=== PATIENT | female | born 1930 | race Caucasian/White ===

== ENCOUNTER 2020-11-02 16:48 | Emergency (ER) | payer MEDICARE, BC ==
[2020-11-02 17:02] VITALS: BP 105/75; PULSE 87; RESP 16; TEMP 98.5
--- NOTE | 2020-11-02 18:00 | XR ---
RESULT: HISTORY: fall TECHNIQUE: 2 views of the right tibia and fibula were obtained. COMPARISON: None. FINDINGS: There is generalized osteopenia. There is no acute fracture or dislocation. Atherosclerotic calcifica tions are seen. Small dorsal calcaneal enthesophyte present. IMPRESSION: No acute osseous abnormality.
--- NOTE | 2020-11-02 18:02 | XR ---
EXAMINATION TYPE: XR elbow limited bilateral DATE OF EXAM: 11/02/2020 CLINICAL HISTORY: Pain status post fall. TECHNIQUE: Frontal, lateral and oblique images of the right elbow are obtained. COMPARISON: None FINDINGS: There is no acute fracture/dislocation evident in the left elbow. There is soft tissue lyn ma about the elbow. No radiopaque foreign body is seen. There are mild degenerative changes. No signi ficant joint effusion. IMPRESSION: Soft tissue edema without acute osseous abnormality.
--- NOTE | 2020-11-02 18:15 | XR ---
Result: History: Pain status post fall. Comparison: None available. Technique: 3 views of the thoracic spine. Findings: The bone mineralization is osteopenic, limiting evaluation. There is chronic appearing, multilevel mild compression deformities. There is no definite acute fract ure or subluxation. There is dextroconvex curvature of the thoracic spine. There is mild to moderate thoracic spondylosis. Impression: Chronic changes without definite acute osseous abnormality.
[2020-11-02 18:19] LABS: Basophils % (A) 0 %; Eosinophils % (A) 0 %; HCT 34.1 % (34.0-46.0); HGB 11.5 gm/dL (11.4-16.0); Lymphocytes # (A) 0.4 k/uL (1.0-4.8); Lymphocytes % (A) 3 %; MCH 32.5 pg (25.0-35.0); MCHC 33.7 g/dL (31.0-37.0); MCV 96.3 fL (80.0-100.0); Mean Platelet Volume 7.5; Monocytes # (A) 0.3 k/uL (0-1.0); Monocytes % (A) 3 %; Neutrophils # (A) 11.5 k/uL (1.3-7.7); Neutrophils % (A) 93 %; Platelet Count 291 k/uL (150-450); RBC 3.54 m/uL (3.80-5.40); RDW 13.9 % (11.5-15.5); WBC 12.3 k/uL (3.8-10.6)
--- NOTE | 2020-11-02 18:21 | ED ---
Fall HPI - General Chief Complaint: Fall Stated Complaint: Fall at home Time Seen by Provider: 11/02/20 16:55 Source: patient, family, EMS, RN notes reviewed Mode of arrival: EMS - History of Present Illness Initial Comments: Patient is an 89-year-old female who presents to emergency department status post fall last night. Her niece showed prostate found her on he kitchen floor in no close. She notes that her aunt told her story about tripped over a laundry basket not being able to get herself back ablation the bed. Patient was complaining of bilateral elbow pain right zurita pain. Niece also noticed several abrasions to the upper mid back. Patient denied any pain other than the elbows while sitting up in bed during exam and interview. Patient did have pretty severe kyphosis. She was a well-appearing 89-year-old female in no apparent distress and she denied any chest pain shortness of breath headache nausea vomiting diarrhea constipation fever fatigue chills. - Related Data Home Medications Medication Instructions Recorded Confirmed Aspirin 81 mg PO DAILY 10/05/13 11/02/20 Metoprolol Succinate (ER) [Toprol 50 mg PO DAILY 10/05/13 11/02/20 XL] Simvastatin [Zocor] 20 mg PO DAILY 10/05/13 11/02/20 Santo/D3/Mag11/Zinc/Boiler Control Room Operator/Jarocho/Bor 1 tab PO DAILY 11/02/20 11/02/20 [Caltrate 600+D Plus Tablet] Sennosides [Senna] 8.6 mg PO BID 11/02/20 11/02/20 amLODIPine [Norvasc] 5 mg PO DAILY 11/02/20 11/02/20 lisinopriL 20 mg PO DAILY 11/02/20 11/02/20 Previous Rx's Medication Instructions Recorded Nitrofurantoin Monohyd/M-Cryst 100 mg PO Q12HR #14 cap 11/02/20 [Macrobid] Allergies Allergy/AdvReac Type Severity Reaction Status Date / Time ampicillin Allergy Unknown Verified 11/02/20 18:54 azithromycin Allergy Unknown Verified 11/02/20 18:54 dexamethasone Allergy Unknown Verified 11/02/20 18:54 erythromycin base Allergy Unknown Verified 11/02/20 18:54 [Erythromycin Base] levofloxacin [From Levaquin] Allergy Unknown Verified 11/02/20 18:54 polyethylene glycol Allergy Unknown Verified 11/02/20 18:54 [From Golytely] polyethylene glycol 3350 Allergy Unknown Verified 11/02/20 18:54 [From Golytely] potassium chloride Allergy Unknown Verified 11/02/20 18:54 [From Golytely] sodium [From Golytely] Allergy Unknown Verified 11/02/20 18:54 sodium bicarbonate Allergy Unknown Verified 11/02/20 18:54 [From Golytely] sodium chloride Allergy Unknown Verified 11/02/20 18:54 [From Golytely] sodium sulfate Allergy Unknown Verified 11/02/20 18:54 [From Golytely] sodium sulfate anhydrous Allergy Unknown Verified 11/02/20 18:54 [From Golytely] Review of Systems ROS Statement: Those systems with pertinent positive or pertinent negative responses have been documented in the HPI. ROS Other: All systems not noted in ROS Statement are negative. Past Medical History Past Medical History: GERD/Reflux, Hyperlipidemia, Hypertension Additional Past Medical History / Comment(s): chronic constipation, irritable bowel syndrome, esophageal spasms, osteoporosis History of Any Multi-Drug Resistant Organisms: None Reported Past Surgical History: Cholecystectomy, Hysterectomy, Orthopedic Surgery Additional Past Surgical History / Comment(s): cysts removed from bilateral breasts, right knee surgery, Past Psychological History: Anxiety, Depression Smoking Status: Never smoker Past Alcohol Use History: None Reported Past Drug Use History: None Reported General Exam Limitations: no limitations General appearance: alert, in no apparent distress, other (Severe kyphosis) Head exam: Present: atraumatic, normocephalic, normal inspection Eye exam: Present: normal appearance. Absent: scleral icterus, conjunctival injection, periorbital swelling Neck exam: Present: normal inspection Respiratory exam: Present: normal lung sounds bilaterally. Absent: respiratory distress, wheezes, rales, rhonchi, stridor Cardiovascular Exam: Present: regular rate, normal rhythm, normal heart sounds. Absent: systolic murmur, diastolic murmur, rubs, gallop, clicks Extremities exam: Present: normal inspection, full ROM, normal capillary refill, other (Small erythematous patch to the right zurita consistent with pressure injury,). Absent: tenderness, pedal edema, joint swelling, calf tenderness Back exam: Absent: normal inspection (2 small abrasions to the upper mid back, no signs or symptoms of infection), full ROM (Due to severe kyphosis) Neurological exam: Present: alert, oriented X3 Psychiatric exam: Present: normal affect, normal mood Skin exam: Present: warm, dry, intact, normal color. Absent: rash Course Vital Signs 11/02/20 17:00 Temperature 98.5 F Pulse Rate 87 Respiratory 16 Rate Blood Pressure 105/75 O2 Sat by Pulse 92 L Oximetry Medical Decision Making - Medical Decision Making 89-year-old female status post fall last night complaining of bilateral elbow pain, right zurita pain with several abrasions to mid back. Labs, x-ray of the bilateral elbow, right tib-fib, thoracic spine ordered. Labs unremarkable. Urinalysis shows moderate white blood cells, antibiotics sent to pharmacy. All x-ray imaging negative for any acute osseous abnormality. Case discussed with Dr. Arce, patient can discharge home with follow-up to primary care. - Lab Data Result diagrams: 11/02/20 17:37 11/02/20 17:37 Lab Results 11/02/20 11/02/20 11/02/20 Range/Units 17:37 17:37 17:37 WBC 12.3 H (3.8-10.6) k/uL RBC 3.54 L (3.80-5.40) m/uL Hgb 11.5 (11.4-16.0) gm/dL Hct 34.1 (34.0-46.0) % MCV 96.3 (80.0-100.0) fL MCH 32.5 (25.0-35.0) pg MCHC 33.7 (31.0-37.0) g/dL RDW 13.9 (11.5-15.5) % Plt Count 291 (150-450) k/uL MPV 7.5 Neutrophils % 93 % Lymphocytes % 3 % Monocytes % 3 % Eosinophils % 0 % Basophils % 0 % Neutrophils # 11.5 H (1.3-7.7) k/uL Lymphocytes # 0.4 L (1.0-4.8) k/uL Monocytes # 0.3 (0-1.0) k/uL Eosinophils # 0.0 (0-0.7) k/uL Basophils # 0.0 (0-0.2) k/uL PT 11.5 (9.0-12.0) sec INR 1.1 (<1.2) APTT 19.0 L (22.0-30.0) sec Sodium 140 (137-145) mmol/L Potassium 4.1 (3.5-5.1) mmol/L Chloride 106 (98-107) mmol/L Carbon Dioxide 20 L (22-30) mmol/L Anion Gap 14 mmol/L BUN 64 H (7-17) mg/dL Creatinine 1.46 H (0.52-1.04) mg/dL Est GFR (CKD-EPI)AfAm 37 (>60 ml/min/1.73 sqM) Est GFR (CKD-EPI)NonAf 32 (>60 ml/min/1.73 sqM) Glucose 124 H (74-99) mg/dL Calcium 9.6 (8.4-10.2) mg/dL Total Bilirubin 2.0 H (0.2-1.3) mg/dL AST 124 H (14-36) U/L ALT 43 H (4-34) U/L Alkaline Phosphatase 73 (38-126) U/L Total Protein 5.9 L (6.3-8.2) g/dL Albumin 3.2 L (3.5-5.0) g/dL Urine Color Urine Appearance (Clear) Urine pH (5.0-8.0) Ur Specific [place] (1.001-1.035) Urine Protein (Negative) Urine Glucose (UA) (Negative) Urine Ketones (Negative) Urine Blood (Negative) Urine Nitrite (Negative) Urine Bilirubin (Negative) Urine Urobilinogen (<2.0) mg/dL Ur Leukocyte Esterase (Negative) Urine RBC (0-5) /hpf Urine WBC (0-5) /hpf 11/02/20 Range/Units 19:13 WBC (3.8-10.6) k/uL RBC (3.80-5.40) m/uL Hgb (11.4-16.0) gm/dL Hct (34.0-46.0) % MCV (80.0-100.0) fL MCH (25.0-35.0) pg MCHC (31.0-37.0) g/dL RDW (11.5-15.5) % Plt Count (150-450) k/uL MPV Neutrophils % % Lymphocytes % % Monocytes % % Eosinophils % % Basophils % % Neutrophils # (1.3-7.7) k/uL Lymphocytes # (1.0-4.8) k/uL Monocytes # (0-1.0) k/uL Eosinophils # (0-0.7) k/uL Basophils # (0-0.2) k/uL PT (9.0-12.0) sec INR (<1.2) APTT (22.0-30.0) sec Sodium (137-145) mmol/L Potassium (3.5-5.1) mmol/L Chloride (98-107) mmol/L Carbon Dioxide (22-30) mmol/L Anion Gap mmol/L BUN (7-17) mg/dL Creatinine (0.52-1.04) mg/dL Est GFR (CKD-EPI)AfAm (>60 ml/min/1.73 sqM) Est GFR (CKD-EPI)NonAf (>60 ml/min/1.73 sqM) Glucose (74-99) mg/dL Calcium (8.4-10.2) mg/dL Total Bilirubin (0.2-1.3) mg/dL AST (14-36) U/L ALT (4-34) U/L Alkaline Phosphatase (38-126) U/L Total Protein (6.3-8.2) g/dL Albumin (3.5-5.0) g/dL Urine Color Yellow Urine Appearance Clear (Clear) Urine pH 5.5 (5.0-8.0) Ur Specific [place] 1.017 (1.001-1.035) Urine Protein 1+ H (Negative) Urine Glucose (UA) Trace H (Negative) Urine Ketones 1+ H (Negative) Urine Blood Small H (Negative) Urine Nitrite Negative (Negative) Urine Bilirubin Negative (Negative) Urine Urobilinogen <2.0 (<2.0) mg/dL Ur Leukocyte Esterase Moderate H (Negative) Urine RBC 3 (0-5) /hpf Urine WBC 7 H (0-5) /hpf - Radiology Data Radiology results: report reviewed, image reviewed Thoracic spine x-ray: Chronic changes without definite acute osseous abnor mality. X-ray of the bilateral elbows: Soft tissue edema without acute osseous abnormality. X-ray of the right tib-fib: No acute osseous abnormality. Disposition Clinical Impression: Fall, Elbow contusion, Urinary tract infection, Contusion of right lower leg Disposition: HOME SELF-CARE Condition: Stable Instructions (If sedation given, give patient instructions): Fall Prevention for Older Adults (ED) Additional Instructions: Please return to the Emergency Department if symptoms worsen or any other concerns. Follow-up primary care in 1-2 days. Take antibiotics as prescribed. Is patient prescribed a controlled substance at d/c from ED?: No Referrals: Dwayne Campbell MD [Primary Care Provider] - 1-2 days Time of Disposition: 19:55
[2020-11-02 18:26] LABS: Albumin 3.2 g/dL (3.5-5.0); Calcium 9.6 mg/dL (8.4-10.2); Potassium 4.1 mmol/L (3.5-5.1); Total Protein 5.9 g/dL (6.3-8.2)
[2020-11-02 18:36] LABS: INR 1.1 (<1.2); Prothrombin Time 11.5 sec (9.0-12.0)
[2020-11-02 19:33] LABS: Appearance,Urine Clear (Clear); Bilirubin,Urine Negative (Negative); Blood,Urine Small (Negative); Color,Urine Yellow; Glucose,Urine (UA) Trace (Negative); Ketones,Urine 1+ (Negative); Leukocyte Esterase,Urine Moderate (Negative); Nitrite,Urine Negative (Negative); PH, Urine 5.5 (5.0-8.0); Protein,Urine 1+ (Negative); RBC,Urine 3 /hpf (0-5); Specific Gravity,Urine 1.017 (1.001-1.035); Urobilinogen,Urine <2.0 mg/dL (<2.0); WBC,Urine 7 /hpf (0-5)
== END 2020-11-02 20:51 | disposition home or self-care (01) ==
LOC: EC 16:48
DX: S50.02XA Contusion of left elbow, initial encounter (principal); S50.01XA Contusion of right elbow, initial encounter; S80.11XA Contusion of right lower leg, initial encounter; S20.419A Abrasion of unspecified back wall of thorax, initial encounter; N39.0 Urinary tract infection, site not specified; I10 Essential (primary) hypertension; E78.5 Hyperlipidemia, unspecified; Z79.899 Other long term (current) drug therapy; Z79.82 Long term (current) use of aspirin; Z88.1 Allergy status to other antibiotic agents; Z88.8 Allergy status to other drugs, medicaments and biological substances; W01.0XXA Fall on same level from slipping, tripping and stumbling without subsequent striking against object, initial encounter; Y92.009 Unspecified place in unspecified non-institutional (private) residence as the place of occurrence of the external cause
CPT/HCPCS: 36415; 72070; 80053; 81001; 85025; 85610; 85730; 99284

== ENCOUNTER → 2020-12-13 | Outpatient (CLI) | payer MEDICARE, BC ==
[2020-12-13 10:15] LABS: Amorphous Sediment,Urine Rare /hpf; Appearance,Urine Cloudy (Clear); Bacteria,Urine Rare /hpf; Bilirubin,Urine Negative (Negative); Blood,Urine Negative (Negative); Calcium Oxalate Crystals,Urine Occasional /hpf; Color,Urine Yellow; Glucose,Urine (UA) Negative (Negative); Ketones,Urine Negative (Negative); Leukocyte Esterase,Urine Moderate (Negative); Mucus,Urine Rare /hpf; Nitrite,Urine Negative (Negative); PH, Urine 5.5 (5.0-8.0); Protein,Urine Negative (Negative); RBC,Urine 10 /hpf (0-5); Specific Gravity,Urine 1.024 (1.001-1.035); Squamous Epithelial Cell,Urine 1 /hpf (0-4); Urobilinogen,Urine <2.0 mg/dL (<2.0); WBC,Urine 9 /hpf (0-5)
== END | disposition home or self-care (01) ==
LOC: LABWHC1 09:15
PROVIDERS: ATTEND Family Medicine
DX: N39.0 Urinary tract infection, site not specified (principal)
CPT/HCPCS: 81001; 87086

== ENCOUNTER 2021-01-13 11:02 | Inpatient (IN) | payer MEDICARE, BC ==
[2021-01-13] MEDS ORDERED: SODIUM CHLORIDE 0.9% 500 ML 500 ML IV STA (13:18)
[2021-01-13 13:53] LABS: Appearance,Urine Clear (Clear); Bilirubin,Urine Negative (Negative); Blood,Urine Negative (Negative); Color,Urine Yellow; Glucose,Urine (UA) Negative (Negative); Ketones,Urine Negative (Negative); Leukocyte Esterase,Urine Negative (Negative); Nitrite,Urine Negative (Negative); PH, Urine 6.5 (5.0-8.0); Protein,Urine Negative (Negative); Specific Gravity,Urine 1.019 (1.001-1.035); Urobilinogen,Urine <2.0 mg/dL (<2.0)
[2021-01-13 14:03] LABS: ALT 18 U/L (4-34); African American GFR (CKD) 80 (>60 ml/min/1.73 sqM); Albumin 3.9 g/dL (3.5-5.0); Alcohol <10 mg/dL; Anion Gap 7 mmol/L; Blood Urea Nitrogen 30 mg/dL (7-17); Calcium 9.9 mg/dL (8.4-10.2); Carbon Dioxide 29 mmol/L (22-30); Chloride 100 mmol/L (98-107); Glucose 132 mg/dL (74-99); Non-African American GFR(CKD) 69 (>60 ml/min/1.73 sqM); Sodium 136 mmol/L (137-145); Total Bilirubin 1.2 mg/dL (0.2-1.3); Total Protein 7.1 g/dL (6.3-8.2)
[2021-01-13 14:12] LABS: Amphetamine Screen,Urine Not Detected (NotDetected); Barbiturate Screen,Urine Not Detected (NotDetected); Benzodiazepines Screen,Urine Not Detected (NotDetected); Cocaine Screen,Urine Not Detected (NotDetected); Methadone Screen, Urine Not Detected (NotDetected); Opiate Screen,Urine Not Detected (NotDetected); Oxycodone Screen, Urine Not Detected (NotDetected); Phencyclidine Screen,Urine Not Detected (NotDetected); Tricyclic Antidepressant,Urine Not Detected (NotDetected); Urn Cannabinoid Scrn Not Detected (NotDetected)
--- NOTE | 2021-01-13 14:13 | XR ---
EXAMINATION TYPE: XR chest 2V DATE OF EXAM: 01/13/2021 COMPARISON: X-ray thoracic spine 11/02/2020 HISTORY: Altered mental status. TECHNIQUE: Frontal and lateral views of the chest are obtained. FINDINGS: There is no focal air space opacity, pleural effusion, or pneumothorax seen. The cardiac silhouette size is within normal limits. Redemonstration of severe exaggerated kyphotic curvature of the thoracic spine IMPRESSION: No acute cardiopulmonary process.
[2021-01-13 14:16] LABS: AST 35 U/L (14-36); Alkaline Phosphatase 52 U/L (38-126); Potassium 4.4 mmol/L (3.5-5.1)
[2021-01-13 14:17] LABS: INR 0.9 (<1.2)
--- NOTE | 2021-01-13 14:19 | CT ---
EXAMINATION TYPE: CT brain wo con DATE OF EXAM: 01/13/2021 COMPARISON: None available HISTORY: AMS CT DLP: 2635.4 mGycm. Automated Exposure Control for Dose Reduction was Utilized. TECHNIQUE: Multiple contiguous axial CT images of the head were performed from the skull base through the vertex without the administration of intravenous contrast. 2-D sagittal and coronal reformats we re obtained. FINDINGS: Significantly limited evaluation due to metallic artifact from the oral cavity. No gross abnormality or significant midline shift. No large intracranial hemorrhage. Evaluation of the parenchyma is signi ficantly limited. No hydrocephalus. Calvarium appears intact. Visualized paranasal sinuses and mastoi d air cells are clear. IMPRESSION: 1. Significantly limited evaluation due to metallic artifact from the oral cavity. 2. No large intracranial hemorrhage or pronounced midline shift; however, evaluation for small intrac ranial hemorrhage or minor midline shift is limited. 3. No hydrocephalus.
[2021-01-13 15:33] LABS: Basophils % (A) 0 %; Eosinophils # (A) 0.1 k/uL (0-0.7); Eosinophils % (A) 1 %; HCT 38.5 % (34.0-46.0); Lymphocytes # (A) 1.2 k/uL (1.0-4.8); Lymphocytes % (A) 18 %; MCH 32.2 pg (25.0-35.0); MCHC 33.8 g/dL (31.0-37.0); MCV 95.4 fL (80.0-100.0); Mean Platelet Volume 7.8; Monocytes # (A) 0.4 k/uL (0-1.0); Monocytes % (A) 6 %; Neutrophils # (A) 4.7 k/uL (1.3-7.7); Neutrophils % (A) 73 %; Platelet Count 171 k/uL (150-450); RBC 4.03 m/uL (3.80-5.40); RDW 15.2 % (11.5-15.5); WBC 6.4 k/uL (3.8-10.6)
[2021-01-13] MEDS ORDERED: ACETAMINOPHEN TAB 325 MG TAB PO PRN (15:57)
--- NOTE | 2021-01-13 16:11 | ED ---
General Adult HPI - General Chief complaint: Altered Mental Status Stated complaint: AMS Time Seen by Provider: 01/13/21 12:26 Source: family, RN notes reviewed, old records reviewed Mode of arrival: wheelchair Limitations: altered mental status, physical limitation - History of Present Illness Initial comments: I evaluated the patient when she was placed in a room. Patient is an 89-year-old female with past medical history remarkable for blindness, hypertension, hyperlipidemia, GERD who lives in a nursing facility presents after being brought in by her niece for visual hallucinations. Patient is chronically blind. However she is hallucinating that she is seeing men coming to her room with guns. She become scared and cries. She has no history of dementia per the patient's knees. No recent medications were started. She did recently completed course of doxycycline and Flagyl for skin infections. She has a contusion to her back as well as her right elbow which have been managed by wound care. She has no decubitus ulcers. 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 Patient otherwise has no acute complaints at this time. She is no history of strokes. She is chronically weak, however needs of not noticed any new onset focal deficits. Patient presents over concern for visual hallucinations/delirium. The symptoms have been ongoing for the last 1-2 days. - Related Data Home Medications Medication Instructions Recorded Confirmed Metoprolol Succinate (ER) [Toprol 50 mg PO DAILY@0700 10/05/13 01/13/21 XL] Simvastatin [Zocor] 20 mg PO HS@1900 10/05/13 01/13/21 Santo/D3/Mag11/Zinc/Senior Information Security Architect/Jarocho/Bor 1 tab PO DAILY@0700 11/02/20 01/13/21 [Caltrate 600+D Plus Tablet] Sennosides [Senna] 8.6 mg PO BID@0700,1900 11/02/20 01/13/21 amLODIPine [Norvasc] 5 mg PO DAILY@0700 11/02/20 01/13/21 lisinopriL 20 mg PO DAILY@0700 11/02/20 01/13/21 Acetaminophen Tab [Tylenol Tab] 1,000 mg PO BID@0700,1900 01/13/21 01/13/21 Cyanocobalamin (Vitamin B-12) 1,000 mcg PO HS@1900 01/13/21 01/13/21 [Vitamin B-12] Magnesium Hydroxide [Milk of 2,400 mg PO DAILY PRN 01/13/21 01/13/21 Magnesia] Nitrofurantoin Monohyd/M-Cryst 100 mg PO BID@0700,1900 01/13/21 01/13/21 [Macrobid] Allergies Allergy/AdvReac Type Severity Reaction Status Date / Time ampicillin Allergy Unknown Verified 01/13/21 16:13 azithromycin Allergy Unknown Verified 01/13/21 16:13 dexamethasone Allergy Unknown Verified 01/13/21 16:13 erythromycin base Allergy Unknown Verified 01/13/21 16:13 [Erythromycin Base] levofloxacin [From Levaquin] Allergy Unknown Verified 01/13/21 16:13 polyethylene glycol Allergy Unknown Verified 01/13/21 16:13 [From Golytely] polyethylene glycol 3350 Allergy Unknown Verified 01/13/21 16:13 [From Golytely] potassium chloride Allergy Unknown Verified 01/13/21 16:13 [From Golytely] sodium [From Golytely] Allergy Unknown Verified 01/13/21 16:13 sodium bicarbonate Allergy Unknown Verified 01/13/21 16:13 [From Golytely] sodium chloride Allergy Unknown Verified 01/13/21 16:13 [From Golytely] sodium sulfate Allergy Unknown Verified 01/13/21 16:13 [From Golytely] sodium sulfate anhydrous Allergy Unknown Verified 01/13/21 16:13 [From Golytely] Review of Systems ROS Statement: Those systems with pertinent positive or pertinent negative responses have been documented in the HPI. Review of Systems: CONST: Denies fever EYES: Denies blurry vision ENT: Denies nasal congestion C/V: Denies Chest pain RESP: Denies shortness of breath GI: Denies abdominal pain : Denies dysuria SKIN: Denies rash. MSK: Denies joint pain. NEURO: Denies headache ROS Other: All systems not noted in ROS Statement are negative. Past Medical History Past Medical History: GERD/Reflux, Hyperlipidemia, Hypertension Additional Past Medical History / Comment(s): chronic constipation, irritable bowel syndrome, esophageal spasms, osteoporosis History of Any Multi-Drug Resistant Organisms: None Reported Past Surgical History: Cholecystectomy, Hysterectomy, Orthopedic Surgery Additional Past Surgical History / Comment(s): cysts removed from bilateral breasts, right knee surgery, Past Psychological History: Anxiety, Depression Smoking Status: Never smoker Past Alcohol Use History: None Reported Past Drug Use History: None Reported General Exam - General Exam Comments Initial Comments: General: Appears in no acute distress. HEAD: Normal with no signs of head trauma. EYES: Patient is chronically blind. Conjunctiva normal. ENT: Hearing grossly intact, normal oropharynx. RESPIRATORY: Clear breath sounds bilaterally. No wheezes, rales, or rhonchi. C/V: Regular rate and rhythm. S1 and S2 auscultated, no edema, peripheral pulses 2+ and intact throughout ABD: Abd is soft, nontender, nondistended EXT: Normal range of motion, no obvious deformity. Patient has severe kyphosis. SKIN: Patient is a stage I ulcer/abrasion over the right elbow that is healing appropriately without any signs of cellulitis or edema. Patient also has a stage I ulcer over her back secondary to her chronic kyphosis which does not appear infected. Both are seen on a daily basis by wound care at her facility. NEURO: Alert and oriented 4. Denies any hallucinations at this time. Patient is baseline cranial nerve exam as well as neurological exam her knees. Based on this, NIH is 0, however it is difficult to obtain an evaluation secondary to her blindness and chronic deficits. GCS is 15. Limitations: altered mental status, physical limitation Course Vital Signs 01/13/21 01/13/21 11:13 17:26 Temperature 98.8 F Pulse Rate 89 90 Respiratory 18 18 Rate Blood Pressure 129/80 127/87 O2 Sat by Pulse 95 95 Oximetry Medical Decision Making - Medical Decision Making Based on the patient's presentation and physical exam, I'm concerned for possible infectious process versus a neurological cause for her delirium/visual hallucinations. Therefore we will obtain a broad workup including cardiac labs, basic labs, altered mental status labs as well as a CT head, chest x-ray, EKG. We will also obtain a urinalysis. Patient will be symptomatically treated with 0.5 L fluid bolus at this time. She otherwise has no acute complaints at this time. Patient was in agreement this plan as was her knees. She currently is not symptomatic with the hallucinations. Patient's EKG shows no acute ischemic changes. Laboratory studies are remarkable for an indeterminate troponin which will be repeated. Covid is negative. Urinalysis is unremarkable. She is no leukocytosis. Labs are otherwise unremarkable. Patient's chest x-ray shows no acute cardio primary process. Patient's EKG shows a limited study secondary to her chronic kyphosis but no acute intracranial process. No obvious shift or hemorrhage. There is no hydrocephalus. On reevaluation, I discussed the results with the patient's niece and the patient. I would like to admit her to the hospital for evaluation by neurology which they were in agreement with the plan. She did have hallucinations 1 time while she has been waiting for results of her labs but currently does not have them. I spoke with neurology, Dr. Sandhu who accepted the consult. MRI was ord ered. I spoke with the admitting team under Dr. Cheung who accepted the patient. Patient was therefore admitted to observation in stable condition. - Lab Data Result diagrams: 01/13/21 15:25 01/13/21 13:33 Lab Results 01/13/21 01/13/21 01/13/21 Range/Units 13:33 13:33 13:33 WBC (3.8-10.6) k/uL RBC (3.80-5.40) m/uL Hgb (11.4-16.0) gm/dL Hct (34.0-46.0) % MCV (80.0-100.0) fL MCH (25.0-35.0) pg MCHC (31.0-37.0) g/dL RDW (11.5-15.5) % Plt Count (150-450) k/uL MPV Neutrophils % % Lymphocytes % % Monocytes % % Eosinophils % % Basophils % % Neutrophils # (1.3-7.7) k/uL Lymphocytes # (1.0-4.8) k/uL Monocytes # (0-1.0) k/uL Eosinophils # (0-0.7) k/uL Basophils # (0-0.2) k/uL PT 10.0 (9.0-12.0) sec INR 0.9 (<1.2) APTT 20.0 L (22.0-30.0) sec Sodium 136 L (137-145) mmol/L Potassium 4.4 (3.5-5.1) mmol/L Chloride 100 (98-107) mmol/L Carbon Dioxide 29 (22-30) mmol/L Anion Gap 7 mmol/L BUN 30 H (7-17) mg/dL Creatinine 0.77 (0.52-1.04) mg/dL Est GFR (CKD-EPI)AfAm 80 (>60 ml/min/1.73 sqM) Est GFR (CKD-EPI)NonAf 69 (>60 ml/min/1.73 sqM) Glucose 132 H (74-99) mg/dL Calcium 9.9 (8.4-10.2) mg/dL Total Bilirubin 1.2 (0.2-1.3) mg/dL AST 35 (14-36) U/L ALT 18 (4-34) U/L Alkaline Phosphatase 52 (38-126) U/L Ammonia (<30) umol/L Troponin I (0.000-0.034) ng/mL Total Protein 7.1 (6.3-8.2) g/dL Albumin 3.9 (3.5-5.0) g/dL Urine Color Yellow Urine Appearance Clear (Clear) Urine pH 6.5 (5.0-8.0) Ur Specific [place] 1.019 (1.001-1.035) Urine Protein Negative (Negative) Urine Glucose (UA) Negative (Negative) Urine Ketones Negative (Negative) Urine Blood Negative (Negative) Urine Nitrite Negative (Negative) Urine Bilirubin Negative (Negative) Urine Urobilinogen <2.0 (<2.0) mg/dL Ur Leukocyte Esterase Negative (Negative) Urine Opiates Screen Not Detected (NotDetected) Ur Oxycodone Screen Not Detected (NotDetected) Urine Methadone Screen Not Detected (NotDetected) Ur Propoxyphene Screen Not Detected (NotDetected) Ur Barbiturates Screen Not Detected (NotDetected) U Tricyclic Antidepress Not Detected (NotDetected) Ur Phencyclidine Scrn Not Detected (NotDetected) Ur Amphetamines Screen Not Detected (NotDetected) U Methamphetamines Scrn Not Detected (NotDetected) U Benzodiazepines Scrn Not Detected (NotDetected) Urine Cocaine Screen Not Detected (NotDetected) U Marijuana (THC) Screen Not Detected (NotDetected) Serum Alcohol <10 mg/dL Coronavirus (PCR) (Not Detectd) 01/13/21 01/13/21 01/13/21 Range/Units 13:33 13:33 13:41 WBC (3.8-10.6) k/uL RBC (3.80-5.40) m/uL Hgb (11.4-16.0) gm/dL Hct (34.0-46.0) % MCV (80.0-100.0) fL MCH (25.0-35.0) pg MCHC (31.0-37.0) g/dL RDW (11.5-15.5) % Plt Count (150-450) k/uL MPV Neutrophils % % Lymphocytes % % Monocytes % % Eosinophils % % Basophils % % Neutrophils # (1.3-7.7) k/uL Lymphocytes # (1.0-4.8) k/uL Monocytes # (0-1.0) k/uL Eosinophils # (0-0.7) k/uL Basophils # (0-0.2) k/uL PT (9.0-12.0) sec INR (<1.2) APTT (22.0-30.0) sec Sodium (137-145) mmol/L Potassium (3.5-5.1) mmol/L Chloride (98-107) mmol/L Carbon Dioxide (22-30) mmol/L Anion Gap mmol/L BUN (7-17) mg/dL Creatinine (0.52-1.04) mg/dL Est GFR (CKD-EPI)AfAm (>60 ml/min/1.73 sqM) Est GFR (CKD-EPI)NonAf (>60 ml/min/1.73 sqM) Glucose (74-99) mg/dL Calcium (8.4-10.2) mg/dL Total Bilirubin (0.2-1.3) mg/dL AST (14-36) U/L ALT (4-34) U/L Alkaline Phosphatase (38-126) U/L Ammonia 18 (<30) umol/L Troponin I 0.020 (0.000-0.034) ng/mL Total Protein (6.3-8.2) g/dL Albumin (3.5-5.0) g/dL Urine Color Urine Appearance (Clear) Urine pH (5.0-8.0) Ur Specific [place] (1.001-1.035) Urine Protein (Negative) Urine Glucose (UA) (Negative) Urine Ketones (Negative) Urine Blood (Negative) Urine Nitrite (Negative) Urine Bilirubin (Negative) Urine Urobilinogen (<2.0) mg/dL Ur Leukocyte Esterase (Negative) Urine Opiates Screen (NotDetected) Ur Oxycodone Screen (NotDetected) Urine Methadone Screen (NotDetected) Ur Propoxyphene Screen (NotDetected) Ur Barbiturates Screen (NotDetected) U Tricyclic Antidepress (NotDetected) Ur Phencyclidine Scrn (NotDetected) Ur Amphetamines Screen (NotDetected) U Methamphetamines Scrn (NotDetected) U Benzodiazepines Scrn (NotDetected) Urine Cocaine Screen (NotDetected) U Marijuana (THC) Screen (NotDetected) Serum Alcohol mg/dL Coronavirus (PCR) Not Detected (Not Detectd) 01/13/21 Range/Units 15:25 WBC 6.4 (3.8-10.6) k/uL RBC 4.03 (3.80-5.40) m/uL Hgb 13.0 (11.4-16.0) gm/dL Hct 38.5 (34.0-46.0) % MCV 95.4 (80.0-100.0) fL MCH 32.2 (25.0-35.0) pg MCHC 33.8 (31.0-37.0) g/dL RDW 15.2 (11.5-15.5) % Plt Count 171 (150-450) k/uL MPV 7.8 Neutrophils % 73 % Lymphocytes % 18 % Monocytes % 6 % Eosinophils % 1 % Basophils % 0 % Neutrophils # 4.7 (1.3-7.7) k/uL Lymphocytes # 1.2 (1.0-4.8) k/uL Monocytes # 0.4 (0-1.0) k/uL Eosinophils # 0.1 (0-0.7) k/uL Basophils # 0.0 (0-0.2) k/uL PT (9.0-12.0) sec INR (<1.2) APTT (22.0-30.0) sec Sodium (137-145) mmol/L Potassium (3.5-5.1) mmol/L Chloride (98-107) mmol/L Carbon Dioxide (22-30) mmol/L Anion Gap mmol/L BUN (7-17) mg/dL Creatinine (0.52-1.04) mg/dL Est GFR (CKD-EPI)AfAm (>60 ml/min/1.73 sqM) Est GFR (CKD-EPI)NonAf (>60 ml/min/1.73 sqM) Glucose (74-99) mg/dL Calcium (8.4-10.2) mg/dL Total Bilirubin (0.2-1.3) mg/dL AST (14-36) U/L ALT (4-34) U/L Alkaline Phosphatase (38-126) U/L Ammonia (<30) umol/L Troponin I (0.000-0.034) ng/mL Total Protein (6.3-8.2) g/dL Albumin (3.5-5.0) g/dL Urine Color Urine Appearance (Clear) Urine pH (5.0-8.0) Ur Specific [place] (1.001-1.035) Urine Protein (Negative) Urine Glucose (UA) (Negative) Urine Ketones (Negative) Urine Blood (Negative) Urine Nitrite (Negative) Urine Bilirubin (Negative) Urine Urobilinogen (<2.0) mg/dL Ur Leukocyte Esterase (Negative) Urine Opiates Screen (NotDetected) Ur Oxycodone Screen (NotDetected) Urine Methadone Screen (NotDetected) Ur Propoxyphene Screen (NotDetected) Ur Barbiturates Screen (NotDetected) U Tricyclic Antidepress (NotDetected) Ur Phencyclidine Scrn (NotDetected) Ur Amphetamines Screen (NotDetected) U Methamphetamines Scrn (NotDetected) U Benzodiazepines Scrn (NotDetected) Urine Cocaine Screen (NotDetected) U Marijuana (THC) Screen (NotDetected) Serum Alcohol mg/dL Coronavirus (PCR) (Not Detectd) - EKG Data -: EKG Interpreted by Me EKG Comments: 12-lead Electrocardiogram Interpretation Note EKG was reviewed and interpreted by myself. 12-lead ECG performed at 1123 is interpreted by me as revealing normal sinus rhythm at a rate of 81 beats per minute. [place] is normal. [place] interval is 154 ms, QRS duration is 80 ms, QTc is 436 seconds.. There are T-wave inversions in lead III, as well as V3 through V5 with no obvious ST segment depressions or elevations.. R wave progression across the precordium was satisfactory. No prior EKG for comparison. Patient may have ischemic changes as evident by T-wave inversions of unknown chronicity in the lateral and inferior leads. Disposition Clinical Impression: Visual hallucinations, Altered mental status, Kyphosis deformity of spine Disposition: ADMITTED IP TO THIS HOSP Condition: Stable
[2021-01-13] MEDS ORDERED: MAGNESIUM HYDROXIDE 2,400 MG/10 ML CUP PO PRN ×2 (16:32→16:36)
[2021-01-13] MEDS ORDERED: NALOXONE 0.4 MG/ML 1 ML VIAL IV PRN (16:36)
[2021-01-13] MEDS ORDERED: LACTULOSE 20 GM/30 ML CUP PO PRN (16:36)
[2021-01-13] MEDS ORDERED: bisacodyL 5 MG TABLET.DR PO PRN (16:36)
[2021-01-13] MEDS ORDERED: ALPRAZolam 0.25 MG TAB PO PRN (16:36)
[2021-01-13] MEDS ORDERED: ONDANSETRON 4 MG/2 ML VIAL IVP PRN (16:36)
--- NOTE | 2021-01-13 18:39 | P.HPIM ---
History of Present Illness H&P Date: 01/13/21 89 years old female who presented with the chief complaints of hallucinations, patient main caregiver is her niece, patient currently lives at assisted living and at baseline is able to ambulate with a walker. Patient in 2012 and her 3 daughters to bend in her over the years, patient nieces is present at bedside and most of the history was obtained from her, patient apparently has cognitive decline for the last few years. Patient apparently has been having some difficulty sleeping for the last few days and although she is legally blind she is currently having visual hallucination and she is seeing different things. In emergency department patient patient had initial workup done including CT head chest x-ray urinalysis basic lab workup, all was negative for any sig nificant finding, patient is being admitted to the hospital medicine service for further management, patient denied nausea vomiting diarrhea fevers Review of Systems 14 point review of system was done in detail and is negative except as above in HPI. Past Medical History Past Medical History: GERD/Reflux, Hyperlipidemia, Hypertension Additional Past Medical History / Comment(s): chronic constipation, irritable bowel syndrome, esophageal spasms, osteoporosis History of Any Multi-Drug Resistant Organisms: None Reported Past Surgical History: Cholecystectomy, Hysterectomy, Orthopedic Surgery Additional Past Surgical History / Comment(s): cysts removed from bilateral breasts, right knee surgery, Past Psychological History: Anxiety, Depression Smoking Status: Never smoker Past Alcohol Use History: None Reported Past Drug Use History: None Reported Medications and Allergies Home Medications Medication Instructions Recorded Confirmed Type Metoprolol Succinate (ER) [Toprol 50 mg PO DAILY@69910/05/13 01/13/21 History XL] Simvastatin [Zocor] 20 mg PO HS@189910/05/13 01/13/21 History Santo/D3/Mag11/Zinc/Inventory Technician/Jarocho/Bor 1 tab PO DAILY@69911/02/20 01/13/21 History [Caltrate 600+D Plus Tablet] Sennosides [Senna] 8.6 mg PO BID@0700,189911/02/20 01/13/21 History amLODIPine [Norvasc] 5 mg PO DAILY@0700 11/02/20 01/13/21 History lisinopriL 20 mg PO DAILY@0711/02/20 01/13/21 History Acetaminophen Tab [Tylenol Tab] 1,000 mg PO BID@0700,1900 01/13/21 01/13/21 History Cyanocobalamin (Vitamin B-12) 1,000 mcg PO HS@1900 01/13/21 01/13/21 History [Vitamin B-12] Magnesium Hydroxide [Milk of 2,400 mg PO DAILY PRN 01/13/21 01/13/21 History Magnesia] Nitrofurantoin Monohyd/M-Cryst 100 mg PO BID@0700,1900 01/13/21 01/13/21 History [Macrobid] Allergies Allergy/AdvReac Type Severity Reaction Status Date / Time ampicillin Allergy Unknown Verified 01/13/21 16:13 azithromycin Allergy Unknown Verified 01/13/21 16:13 dexamethasone Allergy Unknown Verified 01/13/21 16:13 erythromycin base Allergy Unknown Verified 01/13/21 16:13 [Erythromycin Base] levofloxacin [From Levaquin] Allergy Unknown Verified 01/13/21 16:13 polyethylene glycol Allergy Unknown Verified 01/13/21 16:13 [From Golytely] polyethylene glycol 3350 Allergy Unknown Verified 01/13/21 16:13 [From Golytely] potassium chloride Allergy Unknown Verified 01/13/21 16:13 [From Golytely] sodium [From Golytely] Allergy Unknown Verified 01/13/21 16:13 sodium bicarbonate Allergy Unknown Verified 01/13/21 16:13 [From Golytely] sodium chloride Allergy Unknown Verified 01/13/21 16:13 [From Golytely] sodium sulfate Allergy Unknown Verified 01/13/21 16:13 [From Golytely] sodium sulfate anhydrous Allergy Unknown Verified 01/13/21 16:13 [From Golytely] Physical Exam Vitals: Vital Signs Temp Pulse Resp BP Pulse Ox 01/13/21 17:26 90 18 127/87 95 01/13/21 11:13 98.8 F 89 18 129/80 95 Intake and Output 01/13/21 01/13/21 01/13/21 06:59 14:59 22:59 Other: Weight 45.359 kg General: Legally blind, patient has visible kyphosis and scoliosis causing major deformity of upper body Head: atraumatic, normocephalic, symmetric Eyes: no lid lesion], anicteric sclera Mouth: no lip lesion, mucus membranes moist Cardiovascular: S1S2 reg rate and rhythm, no murmur, no gallop Lungs: Bilateral equal air entry, no wheezing no rhonchi no crackles. Abdominal: soft, nontender to palpation, no guarding, no appreciable organomegaly Ext: no gross muscle atrophy, no edema extremities warm to suppose a positive Neuro: Alert oriented to time place and person, exam grossly nonfocal Psych: Mood and affect appropriate, patient not so certain Skin exam: No rashes no jaundice. Results CBC & Chem 7: 01/13/21 15:25 01/13/21 13:33 Labs: Abnormal Lab Results - Last 24 Hours (Table) 01/13/21 01/13/21 Range/Units 13:33 13:33 APTT 20.0 L (22.0-30.0) sec Sodium 136 L (137-145) mmol/L BUN 30 H (7-17) mg/dL Glucose 132 H (74-99) mg/dL Assessment and Plan Assessment: Visual hallucination Likely due to sleep deprivation, likely due to saccade and rhythm disturbance We'll add Seroquel Klonopin Paxil to help her with sleep cycle We'll consult neurology for evaluation Anxiety and depression Adding Paxil, Xanax when necessary Hypertension Norvasc lisinopril metoprolol Hyperlipidemia Lipitor Constipation Continue bowel regimen. DVT prophylaxis: Subcutaneous heparin CODE STATUS: Full code Discharge plan/next site of care: Pending workup hospital course, likely back to home
[2021-01-13] MEDS ORDERED: NITROFURANTOIN MONOHYD/M-CRYST 100 MG CAP PO SCH (19:00)
[2021-01-13] MEDS ORDERED: QUEtiapine 25 MG TAB PO SCH (21:00)
[2021-01-13] MEDS ORDERED: clonazePAM 0.5 MG TAB PO ONE (21:00)
[2021-01-13] MEDS: SENNOSIDES 8.6 MG TAB PO SCH (21:48)
[2021-01-13] MEDS: CYANOCOBALAMIN 500 MCG TAB PO SCH (21:48)
[2021-01-13] MEDS: MELATONIN 5 MG TABLET PO SCH (21:48)
[2021-01-13] MEDS: ATORVASTATIN 10 MG TAB PO SCH (21:48)
[2021-01-14] MEDS: LACTATED RINGERS 1,000 ML IV SCH ×2 (04:25→18:32)
[2021-01-14 06:03] LABS: Basophils % (A) 0 %; Eosinophils # (A) 0.1 k/uL (0-0.7); Eosinophils % (A) 1 %; HCT 39.4 % (34.0-46.0); HGB 12.7 gm/dL (11.4-16.0); Lymphocytes # (A) 1.4 k/uL (1.0-4.8); Lymphocytes % (A) 19 %; MCH 31.8 pg (25.0-35.0); MCHC 32.1 g/dL (31.0-37.0); MCV 98.9 fL (80.0-100.0); Mean Platelet Volume 7.8; Monocytes # (A) 0.4 k/uL (0-1.0); Monocytes % (A) 5 %; Neutrophils # (A) 5.8 k/uL (1.3-7.7); Neutrophils % (A) 74 %; Platelet Count 170 k/uL (150-450); RBC 3.98 m/uL (3.80-5.40); RDW 14.6 % (11.5-15.5); WBC 7.8 k/uL (3.8-10.6)
[2021-01-14] MEDS: METOPROLOL SUCCINATE (ER) 50 MG TAB.ER.24H PO SCH (09:34)
[2021-01-14] MEDS: PARoxetine 10 MG TAB PO SCH (09:34)
[2021-01-14] MEDS: SENNOSIDES 8.6 MG TAB PO SCH ×2 (09:34→20:31)
[2021-01-14] MEDS: amLODIPine 5 MG TAB PO SCH (09:35)
[2021-01-14] MEDS: lisinopriL 20 MG TAB PO SCH (09:35)
[2021-01-14] MEDS: CALCIUM CARB-VIT D 500 MG-5 MCG TAB PO SCH (09:35)
[2021-01-14 10:22] LABS: African American GFR (CKD) 81.7 (60.0-200.0); Albumin 4.1 g/dL (3.8-4.9); Albumin/Globulin Ratio 1.77 (1.60-3.17); Anion Gap 14.6 mmol/L (4.00-12.00); BUN/Creat Ratio 42.06 Ratio (12.00-20.00); Blood Urea Nitrogen 31.8 mg/dL (9.0-27.0); Calcium 9.8 mg/dL (8.7-10.3); Carbon Dioxide 24.6 mmol/L (21.6-31.8); Globulin 2.3 g/dL (1.6-3.3); Non-African American GFR(CKD) 70.5 (60.0-200.0); Potassium 3.6 mmol/L (3.5-5.5); Total Protein 6.4 g/dL (6.2-8.2)
--- NOTE | 2021-01-14 18:31 | P.PN ---
Subjective Progress Note Date: 01/14/21 89 years old female who was admitted for hallucination, she has history of early dementia and recently has been having worsening insomnia. Patient started on Seroquel or depression. Overnight she had some night terror and difficulty sleeping agitation and behavioral disturbance, patient was put in restraints. Patient evaluated at bedside currently she is not agitated in no acute distress, patient needs present at bedside who is the DPOA. Plan discussed with family and patient and nursing staff. Objective - Vital Signs Vital signs: Vital Signs Temp 97.6 F 01/14/21 13:17 Pulse 95 01/14/21 13:17 Resp 18 01/14/21 13:17 BP 135/90 01/14/21 13:17 Pulse Ox 96 01/14/21 13:17 Intake & Output 01/13/21 01/14/21 01/14/21 18:59 06:59 18:59 Intake Total 200 Balance 200 Weight 45.359 kg Intake: Oral 200 Other: Voiding Method Bedside Commode # Voids 2 2 General: Legally blind, patient has visible kyphosis and scoliosis causing major deformity of upper body Head: atraumatic, normocephalic, symmetric Eyes: no lid lesion], anicteric sclera Mouth: no lip lesion, mucus membranes moist Cardiovascular: S1S2 reg rate and rhythm, no murmur, no gallop Lungs: Bilateral equal air entry, no wheezing no rhonchi no crackles. Abdominal: soft, nontender to palpation, no guarding, no appreciable organomegaly Ext: no gross muscle atrophy, no edema extremities warm to suppose a positive Neuro: Alert oriented to time place and person, exam grossly nonfocal Psych: Mood and affect appropriate, patient not so certain Skin exam: No rashes no jaundice. - Labs CBC & Chem 7: 01/14/21 05:40 01/14/21 05:40 Labs: Abnormal Lab Results - Last 24 Hours (Table) 01/14/21 Range/Units 05:40 Anion Gap 14.60 H (4.00-12.00) mmol/L BUN 31.8 H (9.0-27.0) mg/dL BUN/Creatinine Ratio 42.06 H (12.00-20.00) Ratio Glucose 128 H (70-110) mg/dL Assessment and Plan Assessment: Visual hallucination Likely due to sleep deprivation, likely due to circadian rhythm disturbance Increased dose of Seroquel and Depakote. Continue melatonin and Paxil Neurology consulted, neurology evaluation or recommendation pending Will consult psych as well Anxiety and depression Adding Paxil, Xanax when necessary Hypertension Norvasc lisinopril metoprolol Hyperlipidemia Lipitor Constipation Continue bowel regimen. DVT prophylaxis: Subcutaneous heparin CODE STATUS: Full code Discharge plan/next site of care: Pending workup hospital course, likely back to home
[2021-01-14] MEDS: ATORVASTATIN 10 MG TAB PO SCH (20:31)
[2021-01-14] MEDS: QUEtiapine 50 MG TAB PO SCH (20:31)
[2021-01-14] MEDS: MELATONIN 5 MG TABLET PO SCH (20:31)
[2021-01-14] MEDS: CYANOCOBALAMIN 500 MCG TAB PO SCH (20:31)
[2021-01-14] MEDS ORDERED: DIVALPROEX 250 MG TABLET.DR PO SCH (21:00)
[2021-01-15 08:05] LABS: Basophils % (A) 1 %; Eosinophils # (A) 0.1 k/uL (0-0.7); Eosinophils % (A) 2 %; HCT 37.4 % (34.0-46.0); HGB 11.9 gm/dL (11.4-16.0); Lymphocytes % (A) 18 %; MCH 31.9 pg (25.0-35.0); MCHC 31.8 g/dL (31.0-37.0); MCV 100.3 fL (80.0-100.0); Mean Platelet Volume 7.9; Monocytes # (A) 0.4 k/uL (0-1.0); Monocytes % (A) 6 %; Neutrophils # (A) 4.1 k/uL (1.3-7.7); Neutrophils % (A) 72 %; Platelet Count 147 k/uL (150-450); RBC 3.73 m/uL (3.80-5.40); RDW 14.6 % (11.5-15.5); WBC 5.7 k/uL (3.8-10.6)
[2021-01-15] MEDS: lisinopriL 20 MG TAB PO SCH (08:44)
[2021-01-15] MEDS: amLODIPine 5 MG TAB PO SCH (08:44)
[2021-01-15] MEDS: METOPROLOL SUCCINATE (ER) 50 MG TAB.ER.24H PO SCH (08:44)
[2021-01-15] MEDS: PARoxetine 10 MG TAB PO SCH (08:44)
[2021-01-15] MEDS: SENNOSIDES 8.6 MG TAB PO SCH ×2 (08:44→21:41)
[2021-01-15] MEDS: CALCIUM CARB-VIT D 500 MG-5 MCG TAB PO SCH (08:44)
--- NOTE | 2021-01-15 09:19 | P.CNNES ---
History of Present Illness Consult date: 01/15/21 Requesting physician: Dg Lerma Reason for Consult: altered mental status. Visual hallucination in blind patient History of Present Illness: This is an 89-year-old woman with medical history of chronic blindness, hypertension, hyperlipidemia, kyphosis, osteoporosis who presented emergency department on 01/13/2021 because of visual hallucination. Some of the history is obtained from the the medical records. Per the ED note, patient resides in a nursing facility and was brought by his niece because of his visual hallucination for the past 1-2 days. Patient is seeing men coming to her room with guns and as a result these episodes are causing her to cry and scared as a result. She does not have history of dementia. According to the patient she's been living at the nursing facility since October 2020. Patient stated and she is being seen at a pured which the staff at the nursing pill he has not. And then the she's been seeing the figures of febrile attack in her. Per the nurse she stated that the 2 days ago she saw people attack in her but since last night and today it has improved. Patient feels that she's much better. Per the patient's nurse the she denies that the patient has any further confusion and she feels her mentation is much better today. Per the patient's she is a not been sleeping for the past 1 week. Patient denies of any headache, any numbness. Again she states that she's doing better today compared to the neck her initial presentation. Patient was recently completed a dose of doxycycline and Flagyl for skin infection and she had a contusion to her back as well as right elbow which was managed by wound care. She is chronically generalized weak and the denies any focal deficits. She denies any history of stroke or seizures in the past. Patient has been now blind she said for at least 45 years. Her home medication consist of simvastatin 20 mg daily at bedtime, bottom B12 thousand micrograms daily at bedtime, calcium with vitamin D 3 magnesium zinc copper, metoprolol, amlodipine, Lipitor pill, magnesium. Some other workup in the hospital consisted of: Initial vital signs: Blood pressure of 129/80, heart rate of 89, respiratory of 18, temperature of 98.8 Fahrenheit oral pulse ox of 95% at room air. Since the patient has been in the hospital the patient has been afebrile during this admission per EMR record. CT of the head is reported as significant limited evaluation due to metallic artifact from the oral cavity. No large intracranial hemorrhage or pronounced midline shift; however evaluation for small intracranial hemorrhage or minor midline shift is limited. No hydrocephalus. Personally reviewed the CT of the head and it was a difficult to assess the CT because of artifacts. EKG is reported as normal sinus rhythm. Left ventricular hypertrophy with repolarization abnormality. White blood cells 6.4 thousand. Initial sodium is 136 and the repeat is 139, creatinine is 0.77, at initial glucose is 132 and a repeat is 128, before meals is 35 and ALT of 18, ammonia level is 18, calcium is 9.9. Urinalysis is negative for urinary tract infection. Urine toxicology screen is nondetected in the serum alcohol was less than 10. Bradford virus PCR was not detected that. Per the ED note patient had NIH of 0 however it's difficult to obtain an evaluation because of her blindness and chronic deficits. Review of Systems Review of system: The 12 point system was reviewed and apparent positive and negative per HPI. Past Medical History Past Medical History: GERD/Reflux, Hyperlipidemia, Hypertension Additional Past Medical History / Comment(s): chronic constipation, irritable bowel syndrome, esophageal spasms, osteoporosis History of Any Multi-Drug Resistant Organisms: None Reported Past Surgical History: Cholecystectomy, Hysterectomy, Orthopedic Surgery Additional Past Surgical History / Comment(s): cysts removed from bilateral breasts, right knee surgery, Past Anesthesia/Blood Transfusion Reactions: No Reported Reaction Past Psychological History: Anxiety, Depression Smoking Status: Never smoker Past Alcohol Use History: None Reported Past Drug Use History: None Reported Medications and Allergies Home Medications Medication Instructions Recorded Confirmed Type Metoprolol Succinate (ER) [Toprol 50 mg PO DAILY@69910/05/13 01/13/21 History XL] Simvastatin [Zocor] 20 mg PO HS@0 10/05/13 01/13/21 History Santo/D3/Mag11/Zinc/Medical Educator/Jarocho/Bor 1 tab PO DAILY@0711/02/20 01/13/21 History [Caltrate 600+D Plus Tablet] Sennosides [Senna] 8.6 mg PO BID@0700,1900 11/02/20 01/13/21 History amLODIPine [Norvasc] 5 mg PO DAILY@0711/02/20 01/13/21 History lisinopriL 20 mg PO DAILY@0700 11/02/20 01/13/21 History Acetaminophen Tab [Tylenol Tab] 1,000 mg PO BID@0700,1900 01/13/21 01/13/21 History Cyanocobalamin (Vitamin B-12) 1,000 mcg PO HS@1900 01/13/21 01/13/21 History [Vitamin B-12] Magnesium Hydroxide [Milk of 2,400 mg PO DAILY PRN 01/13/21 01/13/21 History Magnesia] Nitrofurantoin Monohyd/M-Cryst 100 mg PO BID@0700,1900 01/13/21 01/13/21 History [Macrobid] Allergies Allergy/AdvReac Type Severity Reaction Status Date / Time ampicillin Allergy Unknown Verified 01/13/21 16:13 azithromycin Allergy Unknown Verified 01/13/21 16:13 dexamethasone Allergy Unknown Verified 01/13/21 16:13 erythromycin base Allergy Unknown Verified 01/13/21 16:13 [Erythromycin Base] levofloxacin [From Levaquin] Allergy Unknown Verified 01/13/21 16:13 polyethylene glycol Allergy Unknown Verified 01/13/21 16:13 [From Golytely] polyethylene glycol 3350 Allergy Unknown Verified 01/13/21 16:13 [From Golytely] potassium chloride Allergy Unknown Verified 01/13/21 16:13 [From Golytely] sodium [From Golytely] Allergy Unknown Verified 01/13/21 16:13 sodium bicarbonate Allergy Unknown Verified 01/13/21 16:13 [From Golytely] sodium chloride Allergy Unknown Verified 01/13/21 16:13 [From Golytely] sodium sulfate Allergy Unknown Verified 01/13/21 16:13 [From Golytely] sodium sulfate anhydrous Allergy Unknown Verified 01/13/21 16:13 [From Golytely] Physical Examination - Vital Signs Vital Signs: Vital Signs Temp Pulse Resp BP Pulse Ox 01/15/21 04:58 98.3 F 77 16 124/79 97 01/14/21 20:48 97.9 F 78 16 130/81 92 L 01/14/21 13:17 97.6 F 95 18 135/90 96 01/14/21 09:35 68 107/69 Intake and Output 01/14/21 01/15/21 01/15/21 22:59 06:59 14:59 Intake Total 350 Balance 350 Intake: Oral 350 Other: # Voids 1 GENERAL: The patient is lying in bed and is not in acute distress. HENT: Neck is hunched and right neck is rotated to right. CHEST: The heart rate is regular rate rhythm. No murmurs to auscultation. LUNG: Clear to auscultation bilaterally no wheezing noted throughout. Not labored breathing. ABDOMEN/GI: Bowel sounds present in all 4 quadrants. No tenderness to palpation throughout. MUSCULOSKELETAL: Kyphosis. NEUROLOGICAL: Higher mental function: The patient is awake, alert, oriented to self, place and time. Patient is following simple commands. No aphasia and no neglect. Cranial nerves: The pupils are round, equal and reactive to light. Visual plummer is blindness of both eyes. Extraocular movement is intact no nystagmus is noted. Facial sensation is normal to touch throughout. The facial strength is normal throughout. Hearing is moderately to severely decreased bilaterally to hand rub. Tongue is midline and moved [id number] without any difficulty. No dysarthria is noted. Motor:Gait is deferred. The strength is moving all extremities above gravity without focality. Normal tone and bulk. Cerebellum: Could not assess because of her cooperation. Sensation: Sensation is normal to touch throughout. Reflexes (right/left): 2+ throughout except patellar are 1+ bilaterally. Plantars are upgoing bilaterally at baseline. Results - Laboratory Findings CBC and BMP: 01/15/21 07:24 01/15/21 07:24 Abnormal Lab Findings: Abnormal Labs 01/13/21 01/13/21 01/14/21 13:33 13:33 05:40 RBC MCV Plt Count APTT 20.0 L Sodium 136 L Anion Gap 14.60 H BUN 30 H 31.8 H BUN/Creatinine Ratio 42.06 H Glucose 132 H 128 H 01/15/21 07:24 RBC 3.73 L MCV 100.3 H Plt Count 147 L APTT Sodium Anion Gap BUN BUN/Creatinine Ratio Glucose Assessment and Plan Assessment: This is an 89-year-old woman who presented to the emergency department on 01/13/2021 for visual elicitation for the last 1-2 days prior to presenting to the hospital. She has not been sleeping for the past one week. Visual hallucination seems due to possibly Delerium from sleep deprivation for past one week and underlying medications (completed doxycyline and Flagyl for underlying skin infection)---currently improved Chronic blindness of both eyes History of hypertension and is controlled during this admission History of hyperlipidemia History of kyphosis Osteoporosis Plan: MRI of the brain is ordered to the ED team stats and is pending I ordered a routine EEG (likely will be done tomorrow). I'll not start the patient on antiepileptic drugs unless there is epileptiform discharges or seizure on the EEG. Ordered TSH, vitamin B12, folate level. She was started on Depakote 250 mg daily at bedtime as well as melatonin 5 mg daily at bedtime, seroquel 50mg qhs started by by the primary team. Also she was started on Xanax 0.25 mg every 6 hours when necessary for anxiety by the primary team. Continue neuro checks Psychiatry team is consulted. We'll defer the rest of the medical management to primary team. Thank you for the consultation. The plan is discussed with the nurse. Prince Nava MD Neuro-Hospitalist Time with Patient: Greater than 30
[2021-01-15 12:27] LABS: African American GFR (CKD) 76.3 (60.0-200.0); Albumin 3.6 g/dL (3.8-4.9); Albumin/Globulin Ratio 1.71 (1.60-3.17); Anion Gap 13.6 mmol/L (4.00-12.00); BUN/Creat Ratio 42.63 Ratio (12.00-20.00); Blood Urea Nitrogen 34.1 mg/dL (9.0-27.0); Calcium 9.3 mg/dL (8.7-10.3); Carbon Dioxide 23.4 mmol/L (21.6-31.8); Globulin 2.1 g/dL (1.6-3.3); Non-African American GFR(CKD) 65.8 (60.0-200.0); Potassium 4.1 mmol/L (3.5-5.5); Total Protein 5.7 g/dL (6.2-8.2)
--- NOTE | 2021-01-15 14:57 | P.CN ---
Psychiatric Consult - . Consult date: 01/15/21 Consult:: 01/15/21 14:52 IDENTIFYING DATA: This patient is a , 89-year-old female who is a resident at an assisted living facility presented to the emergency department with a chief complaint of visual hallucinations and behavioral disturbances. HISTORY OF PRESENT ILLNESS: The patient has a significant history of with a significant history of blindness, hypertension, hyperlipidemia, GERD, and presented to the hospital on 01/13/2021, brought in for visual hallucinations and behavioral disturbances that have been occurring at her assisted living facility, [facility]. As per chart review, the patient has had episodes of psychosis and visual disturbances while admitted to this hospital. When evaluated by this provider, the patient did endorse that she was expressing visual hallucinations and describes in detail that she witnessed an "outdoor parade" while she was attempting to go to the restroom in her assisted living facility. The patient goes into detail that she has been experiencing visual disturbances but makes no mention of any "and with guns" and instead states that she has not experienced any scary visual hallucinations at all. This is contrary to what was reported previously to the nurse, and other clinical staff who report that she was frightened of "men with guns" and that people attempted to attack her at night. The patient is currently not reporting any suicidal or homicidal ideation, intention, and/or plan. She is currently denying any paranoia or other delusions. She is not endorsing any visual or auditory hallucinations today. Much of the history was obtained by the patient's boilermaker loftsman Angela. The patient's boilermaker loftsman reports that the patient began experiencing hallucinations Benji night. She does report that the patient has been incr easingly scared, agitated, and crying. She states that the patient has had some odd behaviors and didn't endorse some hallucinations at nighttime approximately one month prior to this but has otherwise not had any significant episodes that she is aware of. The patient's boilermaker loftsman denies any history of inpatient psychiatric hospitalization for this patient. She reports that the patient has been experiencing falls lately and was recently on treatment of Flagyl and doxycycline for skin infection and a contusion to her back and right elbow. The patient does have a significant history of anxiety disorder and was previously treated with lorazepam but as per boilermaker loftsman, she has not been on this medication for the last 20 years. According to the patient's boilermaker loftsman, the patient was a housewife and a recluse. She reports that the patient spent her last 6 years of life endorse prior to her being admitted to [facility]. The patient's boilermaker loftsman does suspect that the patient's sheltered her from the world. The patient does not have any significant relationship with her 3 daughters either. PAST PSYCHIATRIC HISTORY: Patient has a history of anxiety. The patient was reportedly on lorazepam for many years prior to stopping the medication 20 years ago. The patient and her boilermaker loftsman deny any previous inpatient psychiatric hospitals hallucinations. The patient and her boilermaker loftsman deny any outpatient psychiatric follow-up. [Patient denies any history of suicide attempts in the past.] PAST MEDICAL HISTORY: Past Medical History: GERD/Reflux, Hyperlipidemia, Hypertension Additional Past Medical History / Comment(s): chronic constipation, irritable bowel syndrome, esophageal spasms, osteoporosis History of Any Multi-Drug Resistant Organisms: None Reported Past Surgical History: Cholecystectomy, Hysterectomy, Orthopedic Surgery Additional Past Surgical History / Comment(s): cysts removed from bilateral breasts, right knee surgery, Past Psychological History: Anxiety, Depression Smoking Status: Never smoker Past Alcohol Use History: None Reported Past Drug Use History: None Reported ALLERGIES: Allergies Allergy/AdvReac Type Severity Reaction Status Date / Time ampicillin Allergy Unknown Verified 01/13/21 16:13 azithromycin Allergy Unknown Verified 01/13/21 16:13 dexamethasone Allergy Unknown Verified 01/13/21 16:13 erythromycin base Allergy Unknown Verified 01/13/21 16:13 [Erythromycin Base] levofloxacin [From Levaquin] Allergy Unknown Verified 01/13/21 16:13 polyethylene glycol Allergy Unknown Verified 01/13/21 16:13 [From Golytely] polyethylene glycol 3350 Allergy Unknown Verified 01/13/21 16:13 [From Golytely] potassium chloride Allergy Unknown Verified 01/13/21 16:13 [From Golytely] sodium [From Golytely] Allergy Unknown Verified 01/13/21 16:13 sodium bicarbonate Allergy Unknown Verified 01/13/21 16:13 [From Golytely] sodium chloride Allergy Unknown Verified 01/13/21 16:13 [From Golytely] sodium sulfate Allergy Unknown Verified 01/13/21 16:13 [From Golytely] sodium sulfate anhydrous Allergy Unknown Verified 01/13/21 16:13 [From CloudTags] CHEMICAL DEPENDENCY HISTORY: The patient denies any tobacco, alcohol, marijuana, or illicit drug use. FAMILY PSYCHIATRIC/SUBSTANCE USE HISTORY: Unable to assess SOCIAL HISTORY: Patient was born and raised in [place] and moved to the [facility] in [place]. The patient is after being for 62 years to her who in 2014. She reports that she has 3 children who currently are not in contact with her. This past October, the patient moved into [facility] living [facility] after expressing multiple falls. MENTAL STATUS EXAM: General Appearance: Patient appears to be stated age is alert, pleasant, and cooperative. Patient appears to have [fair] hygiene and grooming wearing hospital gown with poor eye contact. Significant kyphotic features. Behavior: Patient is calmly lying in bed without any agitated behavior. Speech: Patient's speech is fluent and nonpressured. Spontaneous, with normal rate, tone, and volume. Hyperverbal. Mood/Affect: Patient reports their mood is "I'm doing all right", affect is congruent, constricted, but otherwise euthymic. Suicidality/Homicidality: Patient denies any suicidal or homicidal ideation, intention, and/or plan. Perceptions: Patient denies any visual hallucinations and denies any auditory hallucinations Though content/process: The patient appears to be inconsistent and providing a clear history regarding her psychotic symptoms. Memory and concentration: AOX3, grossly intact for the purposes of this session. Can spell "WORLD" backwards Judgment and insight: Poor IMPRESSIONS: Acute psychosis - suspect secondary to undiagnosed/untreated schizophrenia - as per history, patient was primarily a recluse and sheltered by her . She has had occasional episodes of bizarre thoughts and behaviors but never as overt as this recent presentation to the boilermaker loftsman's knowledge. Patient has no recent history of anesthesia, steroid use, CVA, or UTI. Age of onset of psychotic symptoms outside of a diagnosis of dementia is inconsistent with a typical schizophrenia diagnosis. PLAN: -At this time patient DOES NOT meet criteria for inpatient psychiatric admission. Patient is presenting with significant improvement in regards to her psychotic symptoms. Agree with Neurological work up for psychosis/AMS. We will continue currently prescribed medication regimen of seroquel 50 mg at bedtime for psychosis and will continue to re-evaluate the need for inpatient psychiatric hospitalization. -Agree with B12, TSH, folate, EEG. Will order treponema testing. -Delirium precautions recommended with patient including - avoiding use of narcotics and RESEARCH BIOLOGIST sedatives, limit anticholinergic medications when possible, frequent re-orientation, minimize use of restraints, open window shades during the day and close them at night -Would recommend the following medication changes/additions: Continue Seroquel 50 mg at bedtime for psychosis Continue Xanax 0.25 mg q6hr prn for anxiety/agitation Continue melatonin 5 mg at bedtime for insomnia -Will continue to follow along 01/15/21 14:53
--- NOTE | 2021-01-15 17:48 | P.PN ---
Progress Note - Text Progress Note Date: 01/15/21 89 years old female who was admitted for hallucination, she has history of early dementia and recently has been having worsening insomnia. Patient started on Seroquel or depression. Overnight she had some night terror and difficulty sleeping agitation and behavioral disturbance, patient was put in restraints. Patient evaluated at bedside currently she is not agitated in no acute distress, patient needs present at bedside who is the DPOA. Plan discussed with family and patient and nursing staff.: Per 01/15/2021: She this morning very sleepy. Received Depakote, Seroquel, yesterday evening. Patient is barely arousable. Review of systems cannot be obtained as patient is very sleepy Active Medications Acetaminophen (Acetaminophen Tab 325 Mg Tab) 650 mg PO Q6HR PRN PRN Reason: Mild Pain or Fever > 100.5 Alprazolam (Alprazolam 0.25 Mg Tab) 0.25 mg PO Q6HR PRN PRN Reason: Anxiety Last Admin: 01/15/21 09:00 Dose: 0.25 mg Documented by: Amlodipine Besylate (Amlodipine 5 Mg Tab) 5 mg PO DAILY@0700 [facility] Last Admin: 01/15/21 08:44 Dose: 5 mg Documented by: Atorvastatin Calcium (Atorvastatin 10 Mg Tab) 10 mg PO HS@1900 [facility] Last Admin: 01/14/21 20:31 Dose: 10 mg Documented by: Bisacodyl (Bisacodyl 5 Mg Tablet.) 5 mg PO DAILY PRN PRN Reason: Constipation Calcium Carbonate (Calcium Carb-Vit D 500 Mg-5 Mcg Tab) 1 each PO DAILY@0700 [facility] Last Admin: 01/15/21 08:44 Dose: 1 each Documented by: Cyanocobalamin (Cyanocobalamin 500 Mcg Tab) 1,000 mcg PO HS@1900 [facility] Last Admin: 01/14/21 20:31 Dose: 1,000 mcg Documented by: Lactated Ringer's (Lactated Ringers) 1,000 mls @ 20 mls/hr IV .Q24H [facility] Last Admin: 01/14/21 18:32 Dose: Not Given Documented by: Lactulose (Lactulose 20 Gm/30 Ml Cup) 20 gm PO DAILY PRN PRN Reason: Constipation Lisinopril (Lisinopril 20 Mg Tab) 20 mg PO DAILY@0700 [facility] Last Admin: 01/15/21 08:44 Dose: 20 mg Documented by: Magnesium Hydroxide (Magnesium Hydroxide 2,400 Mg/10 Ml Cup) 2,400 mg PO DAILY PRN PRN Reason: Constipation Melatonin (Melatonin 5 Mg Tablet) 5 mg PO [facility] Last Admin: 01/14/21 20:31 Dose: 5 mg Documented by: Metoprolol Succinate (Metoprolol Succinate (Er) 50 Mg Tab.Er.24h) 50 mg PO DAILY@0700 [facility] Last Admin: 01/15/21 08:44 Dose: 50 mg Documented by: Naloxone HCl (Naloxone 0.4 Mg/Ml 1 Ml Vial) 0.2 mg IV Q2M PRN PRN Reason: Opioid Reversal Ondansetron HCl (Ondansetron 4 Mg/2 Ml Vial) 4 mg IVP Q8HR PRN PRN Reason: Nausea And Vomiting Quetiapine Fumarate (Quetiapine 50 Mg Tab) 50 mg PO [facility] Last Admin: 01/14/21 20:31 Dose: 50 mg Documented by: Senna (Sennosides 8.6 Mg Tab) 8.6 mg PO BID@0700,1900 [facility] Last Admin: 01/15/21 08:44 Dose: 8.6 mg Documented by: On examination: VITAL SIGNS: [98, 78, 18, 108/68, 98% room air] GENERAL APPEARANCE: BMI 22.4, laying in bed, very sleepy HEENT: Normal external appearance of nose and ear. Oral cavity normal EYES: Pupils equal. Conjunctiva normal. NECK: JVD not raised. Mass not palpable. RESPIRATORY: Respiratory effort normal. Lungs decreased breath sounds CARDIOVASCULAR: First and second sounds normal. No edema. ABDOMEN: Soft. Liver and spleen not palpable. No tenderness. No mass palpable. PSYCHIATRY: Unable to assess patient very sleepy INVESTIGATIONS, reviewed in the clinical context: White count 5.7 hemoglobin 11.9 platelets 147 potassium 4.1 creatinine 0.8 UA negative Urine drug screen negative COVID 19 [PCR]: Not detected Computed tomography scan of the brain got contrast: No obvious abnormality Assessment and plan: -Acute metabolic encephalopathy from medications.: New onset Patient is on Seroquel 50 mg daily at bedtime. Will DC Depakote. DC Paxil. -GERD -Hyperlipidemia -Essential hypertension Number depend 5 mg daily, lisinopril 20 mg daily, Toprol-XL 50 mg daily -Vitamin B12 deficiency B12 thousand micrograms by mouth daily at bedtime -Chronic blindness Fall precautions -New onset of visual hallucinations likely related to undiagnosed untreated schizophrenia. Follow-up with psychiatry. Seroquel 50 mg daily at bedtime. 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 which is being managed by wound care Patient is Depakote and Paxil has been discontinued. Continue Seroquel. EEG MRI ordered by neurology. Follow with psychiatry.
[2021-01-15] MEDS: LACTATED RINGERS 1,000 ML IV SCH (18:04)
[2021-01-15 18:25] LABS: Vitamin B12 >2000.0 pg/mL (200.0-944.0)
[2021-01-15 20:57] VITALS: RESP 16
[2021-01-15] MEDS: ATORVASTATIN 10 MG TAB PO SCH (21:41)
[2021-01-15] MEDS: CYANOCOBALAMIN 500 MCG TAB PO SCH (21:41)
[2021-01-15] MEDS: QUEtiapine 50 MG TAB PO SCH (21:42)
[2021-01-15] MEDS: MELATONIN 5 MG TABLET PO SCH (21:42)
[2021-01-16 06:31] VITALS: BP 122/72; PULSE 62; TEMP 97.5
[2021-01-16] MEDS: SENNOSIDES 8.6 MG TAB PO SCH (09:20)
[2021-01-16] MEDS: METOPROLOL SUCCINATE (ER) 50 MG TAB.ER.24H PO SCH (09:20)
[2021-01-16] MEDS: amLODIPine 5 MG TAB PO SCH (09:21)
[2021-01-16] MEDS: CALCIUM CARB-VIT D 500 MG-5 MCG TAB PO SCH (09:21)
[2021-01-16] MEDS: lisinopriL 20 MG TAB PO SCH (09:21)
--- NOTE | 2021-01-16 11:05 | P.PN ---
Subjective Progress Note Date: 01/16/21 The patient is seen at bedside and states she denies any visual hallucintation yesterday or today. She denies of any new neurological problems. She could not get MRI Brain because of her neck/ body position and unable to lye flat. The psychiatrist spoke with the patient's tilting saw operator and they noted that the patient has been having some odd behavioral and didn't endorse some hallucination at nighttime. And she has a occasional episode bizarre thoughts and behavioral. Patient's symptoms has been sheltered by her . He does have previous history of anxiety and is on Ativan for the last 20 years. The psychiatry team feels that the patient has acute psychosis suspect secondary undiagnosed untreated schizophrenia Objective - Vital Signs Vital signs: Vital Signs Temp 97.5 F L 01/16/21 05:00 Pulse 62 01/16/21 05:00 Resp 16 01/16/21 05:00 BP 122/72 01/16/21 05:00 Pulse Ox 96 01/16/21 05:00 Intake & Output 01/15/21 01/16/21 01/16/21 18:59 06:59 18:59 Other: Voiding Method Bedside Commode # Voids 3 1 - Exam GENERAL: The patient is lying in bed and is not in acute distress. HENT: Neck and upper back is hunched over and neck is slightly rotated to right. CHEST: The heart rate is regular rate rhythm. No murmurs to auscultation. LUNG: Clear to auscultation bilaterally no wheezing noted throughout. Not labored breathing. ABDOMEN/GI: Bowel sounds present in all 4 quadrants. No tenderness to palpation throughout. MUSCULOSKELETAL: Kyphosis. NEUROLOGICAL: Higher mental function: The patient is awake, alert, oriented to self, place and time. Patient is following simple commands. No aphasia and no neglect. Cranial nerves: The pupils are round, equal and reactive to light. Visual plummer is blindness of both eyes. Extraocular movement is intact no nystagmus is noted. Facial sensation is normal to touch throughout. The facial strength is normal throughout. Hearing is moderately to severely decreased bilaterally to hand rub. Tongue is midline and moved [id number] without any difficulty. No dysarthria is noted. Neck is slightly rotated to right but is able to move it to right or left. Motor:Gait is deferred. The strength is moving all extremities above gravity without focality. Normal tone and bulk. Cerebellum: Could not assess because of her cooperation. Sensation: Sensation is normal to touch throughout. Reflexes (right/left): 2+ throughout except patellar are 1+ bilaterally. Plantars are upgoing bilaterally at baseline. WORK-UP: TSH is 1.070. Serum folate is 13.4 Vitamin B12 is more than 2000. AST 35 and ALT of 18. Ammonia levels 18. CT of the head is reported as significant limited evaluation due to metallic artifact from the oral cavity. No large intracranial hemorrhage or pronounced midline shift; however evaluation for small intracranial hemorrhage or minor mid line shift is limited. No hydrocephalus. Personally reviewed the CT of the head and it was a difficult to assess the CT because of artifacts. - Labs CBC & Chem 7: 01/15/21 07:24 01/15/21 07:24 Labs: Abnormal Lab Results - Last 24 Hours (Table) 01/15/21 01/15/21 Range/Units 07:24 07:24 Anion Gap 13.60 H (4.00-12.00) mmol/L BUN 34.1 H (9.0-27.0) mg/dL BUN/Creatinine Ratio 42.63 H (12.00-20.00) Ratio Total Protein 5.7 L (6.2-8.2) g/dL Albumin 3.6 L (3.8-4.9) g/dL Vitamin B12 >2000.0 H (200.0-944.0) pg/mL Assessment and Plan Assessment: This is an 89-year-old woman who presented to the emergency department on 01/13/2021 for visual elicitation for the last 1-2 days prior to presenting to the hospital. She has not been sleeping for the past one week. Visual hallucination seems due to possibly Delirium from sleep deprivation for past one week and underlying medications (completed doxycyline and Flagyl for underlying skin infection). Another possibility is psychosis with undiagnosed schizophrenia---currently improved Chronic blindness of both eyes History of hypertension and is controlled during this admission History of hyperlipidemia History of kyphosis Osteoporosis Plan: Could not tolerate MRI Brain. Pending EEG: Preliminary report: The background slowing is suggestive of mild to moderate encephalopahty. There are no focal slowing, epileptiform discharges or seizure on the EEG. She is on melatonin 5 mg daily at bedtime (for insominia), seroquel 50mg qhs for psychosis. She was started on Xanax 0.25 mg every 6 hours when necessary for anxiety. Continue neuro checks Psychiatry team is on board. We'll defer the rest of the medical management to primary team. The plan is discussed with the nurse. There is no further neurological work-up. Prince Nava MD Neuro-Hospitalist Time with Patient: Less than 30
--- NOTE | 2021-01-16 12:07 | EEG ---
ELECTROENCEPHALOGRAM REPORT DATE OF SERVICE: 01/16/2021 CLINICAL HISTORY: This is an 89-year-old woman with visual hallucination. The video EEG is obtained to evaluate for seizure epileptiform activity. RELEVANT MEDICATION: The patient is not on any antiepileptic drugs. EEG TYPE: A routine 21-channel EEG is performed with video using the 10/20 electrode placement system. DESCRIPTION: Wakefulness is only obtained. During wakefulness, there is a posterior-dominant rhythm of low to moderate voltage that is well modulated of 6-7 hertz activity. At times the background consists of diffuse nonrhythmic delta activity. There is no physiological sleep architecture seen. There is no focal slowing seen. Interictal and ictal is none. ACTIVATION PROCEDURE: Photic stimulation did not evoke a posterior driving response. There is no abnormality during photic stimulation. Hyperventilation was not performed. CLINICAL INTERPRETATION: This is an abnormal routine EEG. The background slowing is suggestive of mild to moderate encephalopathy. There are no focal slowing, epileptiform discharges or seizure on the EEG. Clinical correlation is recommended. MMGLO / VIOLAN: [id number] / [email or web address]
--- NOTE | 2021-01-16 18:27 | P.PN ---
Progress Note - Text Progress Note Date: 01/16/21 89 years old female who was admitted for hallucination, she has history of early dementia and recently has been having worsening insomnia. Patient started on Seroquel or depression. Overnight she had some night terror and difficulty sleeping agitation and behavioral disturbance, patient was put in restraints. Patient evaluated at bedside currently she is not agitated in no acute distress, patient needs present at bedside who is the DPOA. Plan discussed with family and patient and nursing staff.: {Per } 01/15/2021: She this morning very sleepy. Received Depakote, Seroquel, yesterday evening. Patient is barely arousable. 01/16/2021. Depakote was discontinued yesterday. Paxil also discontinued. Patient slept well last night. No further hallucinations. Patient's had a full conversation today. Answered many questions. Including discussion of m edications. Patient to remain on Seroquel. Will be discharged to the [facility]. Discussed with case supervisor Discussion and discharge planning more than 35 minutes Consultation: Neurology Psychiatry On examination: VITAL SIGNS: 97.5, 62, 16, 122/72, 96% room air GENERAL APPEARANCE: Awake alert answering questions HEENT: Normal external appearance of nose and ear. Oral cavity normal EYES: Pupils equal. Conjunctiva normal. NECK: JVD not raised. Mass not palpable. RESPIRATORY: Respiratory effort normal. Lungs decreased breath sounds CARDIOVASCULAR: First and second sounds normal. No edema. ABDOMEN: Soft. Liver and spleen not palpable. No tenderness. No mass palpable. PSYCHIATRY: Awake alert, answering questions appropriately. INVESTIGATIONS, reviewed in the clinical context: B12. 2000, folate 13.4, TSH 1.07 White count 5.7 hemoglobin 11.9 platelets 147 potassium 4.1 creatinine 0.8 UA negative Urine drug screen negative COVID 19 [PCR]: Not detected Computed tomography scan of the brain got contrast: No obvious abnormality Assessment and plan: -Acute metabolic encephalopathy from medications.: New onset Continue Seroquel 50 mg daily at bedtime. Will DC Depakote. DC Paxil. -GERD -Hyperlipidemia -Essential hypertension Number depend 5 mg daily, lisinopril 20 mg daily, Toprol-XL 50 mg daily -Vitamin B12 deficiency B12 thousand micrograms by mouth daily at bedtime -Chronic blindness Fall precautions -New onset of visual hallucinations likely related to undiagnosed untreated schizophrenia. Follow-up with psychiatry. Seroquel 50 mg daily at bedtime. 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
--- NOTE | 2021-01-24 21:42 | P.DS ---
Providers Date of admission: 01/15/21 15:00 Expected date of discharge: 01/16/21 Attending physician: Yuri Bullard Consults: 01/13/21 15:58 Consult Physician Routine Consulting Provider: Godfrey Sandhu Consult Reason/Comments: AMS, visual hallucinations in blind patient Do you want consulting provider notified?: Yes 01/14/21 19:33 Consult Physician Routine Consulting Provider: Ishmael Razo Consult Reason/Comments: insomnia, dementia, agitation Do you want consulting provider notified?: Yes Primary care physician: Isauro Mar MD Procedures: 89 years old female who was admitted for hallucination, she has history of early dementia and recently has been having worsening insomnia. Patient started on Seroquel or depression. Overnight she had some night terror and difficulty sleeping agitation and behavioral disturbance, patient was put in restraints. Patient evaluated at bedside currently she is not agitated in no acute distress, patient needs present at bedside who is the DPOA. Plan discussed with family and patient and nursing staff.: {Per } 01/15/2021: She this morning very sleepy. Received Depakote, Seroquel, yest erday evening. Patient is barely arousable. 01/16/2021. Depakote was discontinued yesterday. Paxil also discontinued. Patient slept well last night. No further hallucinations. Patient's had a full conversation today. Answered many questions. Including discussion of medications. Patient to remain on Seroquel. Will be discharged to the [facility]. Discussed with director of casework Discussion and discharge planning more than 35 minutes Consultation: Neurology Psychiatry On examination: VITAL SIGNS: 97.5, 62, 16, 122/72, 96% room air GENERAL APPEARANCE: Awake alert answering questions HEENT: Normal external appearance of nose and ear. Oral cavity normal EYES: Pupils equal. Conjunctiva normal. NECK: JVD not raised. Mass not palpable. RESPIRATORY: Respiratory effort normal. Lungs decreased breath sounds CARDIOVASCULAR: First and second sounds normal. No edema. ABDOMEN: Soft. Liver and spleen not palpable. No tenderness. No mass palpable. PSYCHIATRY: Awake alert, answering questions appropriately. INVESTIGATIONS, reviewed in the clinical context: B12. 2000, folate 13.4, TSH 1.07 White count 5.7 hemoglobin 11.9 platelets 147 potassium 4.1 creatinine 0.8 UA negative Urine drug screen negative COVID 19 [PCR]: Not detected Computed tomography scan of the brain got contrast: No obvious abnormality Assessment and plan: -Acute metabolic encephalopathy from medications.: New onset Continue Seroquel 50 mg daily at bedtime. Will DC Depakote. DC Paxil. -GERD -Hyperlipidemia -Essential hypertension Number depend 5 mg daily, lisinopril 20 mg daily, Toprol-XL 50 mg daily -Vitamin B12 deficiency B12 thousand micrograms by mouth daily at bedtime -Chronic blindness Fall precautions -New onset of visual hallucinations likely related to undiagnosed untreated schizophrenia. Follow-up with psychiatry. Seroquel 50 mg daily at bedtime. 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 which is being managed by wound care Disposition: [facility] assisted living Patient Condition at Discharge: Stable Plan - Discharge Summary New Discharge Prescriptions: New QUEtiapine [SEROquel] 50 mg PO HS #30 tab Melatonin 5 mg PO HS #30 tablet Continue Simvastatin [Zocor] 20 mg PO HS@1900 Metoprolol Succinate (ER) [Toprol XL] 50 mg PO DAILY@0700 lisinopriL 20 mg PO DAILY@0700 Cyanocobalamin (Vitamin B-12) [Vitamin B-12] 1,000 mcg PO HS@1900 Magnesium Hydroxide [Milk of Magnesia] 2,400 mg PO DAILY PRN PRN Reason: Constipation Santo/D3/Mag11/Zinc/Bodywork Therapist/Jarocho/Bor [Caltrate 600+D Plus Tablet] 1 tab PO DAILY@0700 amLODIPine [Norvasc] 5 mg PO DAILY@0700 Sennosides [Senna] 8.6 mg PO BID@0700,1900 Acetaminophen Tab [Tylenol] 1,000 mg PO BID@0700,1900 No Action Nitrofurantoin Monohyd/M-Cryst [Macrobid] 100 mg PO BID@0700,1900 Discharge Medication List Metoprolol Succinate (ER) [Toprol XL] 50 mg PO DAILY@0700 10/05/13 [History] Simvastatin [Zocor] 20 mg PO HS@1900 10/05/13 [History] Santo/D3/Mag11/Zinc/Bodywork Therapist/Jarocho/Bor [Caltrate 600+D Plus Tablet] 1 tab PO DAILY@0700 11/02/20 [History] Sennosides [Senna] 8.6 mg PO BID@0700,1900 11/02/20 [History] amLODIPine [Norvasc] 5 mg PO DAILY@0711/02/20 [History] lisinopriL 20 mg PO DAILY@0711/02/20 [History] Acetaminophen Tab [Tylenol] 1,000 mg PO BID@0700,1900 01/13/21 [History] Cyanocobalamin (Vitamin B-12) [Vitamin B-12] 1,000 mcg PO HS@189901/13/21 [History] Magnesium Hydroxide [Milk of Magnesia] 2,400 mg PO DAILY PRN 01/13/21 [History] Nitrofurantoin Monohyd/M-Cryst [Macrobid] 100 mg PO BID@0700,0 01/13/21 [History] Melatonin 5 mg PO HS #30 tablet 01/16/21 [Rx] QUEtiapine [SEROquel] 50 mg PO HS #30 tab 01/16/21 [Rx] Follow up Appointment(s)/Referral(s): Isauro Mar MD [Primary Care Provider] - 1-2 days Patient Instructions/Handouts: Quetiapine (By mouth), Melatonin (By mouth), Hallucinations (DC) Discharge Disposition: TRANSFER TO SNF/ECF
== END 2021-01-16 12:43 | DRG 92 ==
LOC: EC 11:02 → 5NMEDONC 15:57 → OBSVTOIN 01-15 15:00
PROVIDERS: ADMIT Hospitalist; ATTEND Hospitalist
DX: G92.8 Other toxic encephalopathy (principal); F23 Brief psychotic disorder; F03.91 Unspecified dementia, unspecified severity, with behavioral disturbance; I62.9 Nontraumatic intracranial hemorrhage, unspecified; L98.498 Non-pressure chronic ulcer of skin of other sites with other specified severity; G47.00 Insomnia, unspecified; T43.595A Adverse effect of other antipsychotics and neuroleptics, initial encounter; F32.9 Major depressive disorder, single episode, unspecified; H54.8 Legal blindness, as defined in USA; Z20.822 Contact with and (suspected) exposure to COVID-19; M40.209 Unspecified kyphosis, site unspecified; R44.1 Visual hallucinations; F41.9 Anxiety disorder, unspecified; I11.9 Hypertensive heart disease without heart failure; E78.5 Hyperlipidemia, unspecified; T50.905A Adverse effect of unspecified drugs, medicaments and biological substances, initial encounter; K59.09 Other constipation; R29.700 NIHSS score 0; K21.9 Gastro-esophageal reflux disease without esophagitis; K22.4 Dyskinesia of esophagus; F51.4 Sleep terrors [night terrors]; S20.229A Contusion of unspecified back wall of thorax, initial encounter; E53.8 Deficiency of other specified B group vitamins; M81.0 Age-related osteoporosis without current pathological fracture; Z72.820 Sleep deprivation; K58.9 Irritable bowel syndrome, unspecified; L08.9 Local infection of the skin and subcutaneous tissue, unspecified; Z79.899 Other long term (current) drug therapy; Z90.710 Acquired absence of both cervix and uterus; Z88.1 Allergy status to other antibiotic agents; Z90.49 Acquired absence of other specified parts of digestive tract; Z78.1 Physical restraint status
CPT/HCPCS: 36415; 70450; 71046; 80053; 80306; 80320; 81003; 82140; 82607; 82746; 84443; 84484; 85025; 85610; 85730; 86780; 87635; 93005; 95816; 96360; 99285

== ENCOUNTER 2021-02-16 18:41 | Inpatient (IN) | payer MEDICARE, BC ==
--- NOTE | 2021-02-16 19:52 | ED ---
General Adult HPI - General Source: EMS Mode of arrival: EMS Limitations: no limitations <ClaudeRosytemo Mendoza - Last Filed: 02/16/21 21:59> <Teo Saeed - Last Filed: 02/17/21 01:20> - General Chief complaint: Altered Mental Status Stated complaint: Altered Mental Time Seen by Provider: 02/16/21 19:08 - History of Present Illness Initial comments: Dictation was produced using Pacinian dictation software. please excuse any grammatical, word or spelling errors. Chief Complaint: 89-year-old female brought in by EMS for altered mental status History of Present Illness: Patient is an 89-year-old female she is brought to the emergency department for altered mental status. Patient unable to provide history present illness due to history of mental debility. History was was obtained from Angela who is patient's listed electrician telephone in her demographic section. She reports that patient is at a senior living and she's been having signs of worsening mentation. Patient was recently in the hospital for altered mentation she was prescribed Seroquel. Over the last several days she's been having worsening aggressive behavior, hallucinations that are visual and auditory. There is no history of falls. Patient is allegedly blind. The ROS documented in this emergency department record has been reviewed and confirmed by me. Those systems with pertinent positive or negative responses have been documented in the HPI. All other systems are other negative and/or noncontributory. PHYSICAL EXAM: General Impression: Alert, not in acute distress, severe bodily deformity HEENT: Normocephalic atraumatic, extra-ocular movements intact, pupils equal and reactive to light bilaterally, mucous membranes moist. Cardiovascular: Heart regular rate and rhythm Chest: Able to complete full sentences, no retractions, no tachypnea Abdomen: abdomen soft, non-tender, non-distended, no organomegaly Musculoskeletal: Pulses present and equal in all extremities, no peripheral edema Motor: no focal deficits noted Neurological: CN II-XII grossly intact, no focal motor or sensory deficits noted Skin: Intact with no visualized rashes Psych: Tangential speech ED course: Patient is an 89-year-old female brought into the emergency department for worsening hallucinations, aggressive behavior at the senior living. vital signs upon arrival are within acceptable limits. To evaluation obtained. CBC, metabolic panel, alcohol is negative. Computed tomography scan the brain is unremarkable. Urinalysis suggestive of urinary tract infection with 24 white blood cells and 12 rbc's. Patient is chronically wears positive. Patient is not hypoxic not showing signs of respiratory distr ess. His unclear how long patient has had coronavirus for because she cannot provide a detailed history furthermore. She does not have any respiratory symptoms. Given these reasons patient will not be ordered for monoclonal antibodies. Patient medically cleared for EPS evaluation. She is given ceftriaxone for her UTI. Patient is not having features of sepsis. She is normotensive without pyr exia. (Vinny Arce) - Related Data Home Medications Medication Instructions Recorded Confirmed Metoprolol Succinate (ER) [Toprol 50 mg PO DAILY@0700 10/05/13 02/16/21 XL] Simvastatin [Zocor] 20 mg PO HS@1900 10/05/13 02/16/21 Santo/D3/Mag11/Zinc/Bridge Teacher/Jarocho/Bor 1 tab PO DAILY@0700 11/02/20 02/16/21 [Caltrate 600+D Plus Tablet] Sennosides [Senna] 8.6 mg PO BID@0700,1900 11/02/20 02/16/21 amLODIPine [Norvasc] 5 mg PO DAILY@0700 11/02/20 02/16/21 lisinopriL 20 mg PO DAILY@0700 11/02/20 02/16/21 Acetaminophen Tab [Tylenol] 1,000 mg PO BID@0700,1900 01/13/21 02/16/21 Cyanocobalamin (Vitamin B-12) 1,000 mcg PO HS@1900 01/13/21 02/16/21 [Vitamin B-12] Magnesium Hydroxide [Milk of 1,200 mg PO Q48H 01/13/21 02/16/21 Magnesia] ALPRAZolam [Xanax] 0.25 mg PO Q6H PRN 02/16/21 02/16/21 Ascorbic Acid [Vitamin C] 500 mg PO BID@0700,1900 02/16/21 02/16/21 Cholecalciferol [Vitamin D3 (25 50 mcg PO DAILY@0700 02/16/21 02/16/21 Mcg = 1000 Iu)] FLUoxetine HCL [Sarafem] 30 mg PO DAILY@0700 02/16/21 02/16/21 Finasteride [Proscar] 5 mg PO DAILY@0700 02/16/21 02/16/21 Melatonin 10 mg PO HS 02/16/21 02/16/21 Nystatin 100,000 Unit/gm Powd 1 applic TOPICAL BID@0700,1900 02/16/21 02/16/21 [Mycostatin Powder] Nystatin 100,000Unit/gm Cream 1 applic TOPICAL BID@0700,1900 02/16/21 02/16/21 [Mycostatin Cream] QUEtiapine [SEROquel] 25 mg PO DAILY@0700 02/16/21 02/16/21 QUEtiapine [SEROquel] 50 mg PO HS@1900 02/16/21 02/16/21 Zinc Sulfate [Orazinc] 220 mg PO DAILY@0700 02/16/21 02/16/21 predniSONE See Taper PO DIRECTED@0702/16/21 02/16/21 Allergies Allergy/AdvReac Type Severity Reaction Status Date / Time ampicillin Allergy Unknown Verified 02/16/21 19:58 azithromycin Allergy Swelling Verified 02/16/21 19:58 of tongue dexamethasone Allergy Unknown Verified 02/16/21 19:58 erythromycin base Allergy Unknown Verified 02/16/21 19:58 [Erythromycin Base] levofloxacin [From Levaquin] Allergy Unknown Verified 02/16/21 19:58 polyethylene glycol Allergy Unknown Verified 02/16/21 19:58 [From Golytely] polyethylene glycol 3350 Allergy Unknown Verified 02/16/21 19:58 [From Golytely] potassium chloride Allergy Unknown Verified 02/16/21 19:58 [From Golytely] sodium [From Golytely] Allergy Unknown Verified 02/16/21 19:58 sodium bicarbonate Allergy Unknown Verified 02/16/21 19:58 [From Golytely] sodium chloride Allergy Unknown Verified 02/16/21 19:58 [From Golytely] sodium sulfate Allergy Unknown Verified 02/16/21 19:58 [From Golytely] sodium sulfate anhydrous Allergy Unknown Verified 02/16/21 19:58 [From Golytely] penicillin V AdvReac Diarrhea Verified 02/16/21 19:58 Review of Systems ROS Other: All systems not noted in ROS Statement are negative. <Vinny Arce - Last Filed: 02/16/21 21:59> ROS Other: All systems not noted in ROS Statement are negative. <Teo Saeed - Last Filed: 02/17/21 01:20> ROS Statement: Those systems with pertinent positive or pertinent negative responses have been documented in the HPI. Past Medical History Past Medical History: GERD/Reflux, Hyperlipidemia, Hypertension Additional Past Medical History / Comment(s): chronic constipation, irritable bowel syndrome, esophageal spasms, osteoporosis, scoliosis History of Any Multi-Drug Resistant Organisms: None Reported Past Surgical History: Cholecystectomy, Hysterectomy, Orthopedic Surgery Additional Past Surgical History / Comment(s): cysts removed from bilateral breasts, right knee surgery, Past Anesthesia/Blood Transfusion Reactions: No Reported Reaction Past Psychological History: Anxiety, Depression Smoking Status: Never smoker Past Alcohol Use History: None Reported Past Drug Use History: None Reported <Vinny Arce - Last Filed: 02/16/21 21:59> General Exam Limitations: no limitations <Vinny Arce - Last Filed: 02/16/21 21:59> Limitations: altered mental status General appearance: alert, in no apparent distress Head exam: Present: atraumatic, normocephalic, normal inspection Eye exam: Present: normal appearance, PERRL, EOMI. Absent: scleral icterus, co njunctival injection, periorbital swelling ENT exam: Present: normal exam, mucous membranes moist Neck exam: Present: normal inspection. Absent: tenderness, meningismus, lymphadenopathy Respiratory exam: Present: normal lung sounds bilaterally. Absent: respiratory distress, wheezes, rales, rhonchi, stridor Cardiovascular Exam: Present: regular rate, normal rhythm, normal heart sounds. Absent: systolic murmur, diastolic murmur, rubs, gallop, clicks GI/Abdominal exam: Present: soft, normal bowel sounds. Absent: distended, tenderness, guarding, rebound, rigid Extremities exam: Present: normal inspection, full ROM, normal capillary refill. Absent: tenderness, pedal edema, joint swelling, calf tenderness Back exam: Present: normal inspection Neurological exam: Present: alert, oriented X3, CN II-XII intact Psychiatric exam: Present: normal affect, normal mood Skin exam: Present: warm, dry, intact, normal color. Absent: rash <Teo Saeed - Last Filed: 02/17/21 01:20> Course <Teo Saeed - Last Filed: 02/17/21 01:20> Vital Signs 02/16/21 02/17/21 18:43 00:23 Temperature 97.9 F 98.2 F Pulse Rate 79 87 Respiratory 16 16 Rate Blood Pressure 135/77 163/97 O2 Sat by Pulse 95 96 Oximetry - Reevaluation(s) Reevaluation #1: 02/17/21 01:18 Record is reviewed (Teo Saeed) Reevaluation #2: 02/17/21 01:18 Patient remains significantly altered here in the emergency department (Teo Saeed) Reevaluation #3: 02/17/21 01:18 Patient will be admitted for psychiatric evaluation monitoring of coronavirus symptoms (Teo Saeed) - Consultations Consultation #1: spoke w Dr Bullard agrees to admit this patient (Teo Saeed) Medical Decision Making - Lab Data Result diagrams: 02/16/21 20:23 02/16/21 20:23 <Vinny Arce - Last Filed: 02/16/21 21:59> - Lab Data Result diagrams: 02/16/21 20:23 02/16/21 20:23 - Radiology Data Radiology results: report reviewed (CT brain is negative for acute disease), image reviewed <Teo Saeed - Last Filed: 02/17/21 01:20> - Medical Decision Making 89 female to the emergency room today. Patient resents today for altered mental status and psychiatric evaluation. Patient was sent from a [address] [place] [address] senior living for altered mental status. Patient be admitted for psychiatric evaluation monitoring (Teo Saeed) - Lab Data Lab Results 02/16/21 02/16/21 02/16/21 Range/Units 20:23 20:23 20:23 WBC 12.9 H (3.8-10.6) k/uL RBC 4.01 (3.80-5.40) m/uL Hgb 12.5 (11.4-16.0) gm/dL Hct 37.4 (34.0-46.0) % MCV 93.2 D (80.0-100.0) fL MCH 31.3 (25.0-35.0) pg MCHC 33.6 (31.0-37.0) g/dL RDW 13.7 (11.5-15.5) % Plt Count 225 (150-450) k/uL MPV 7.9 Neutrophils % 91 % Lymphocytes % 6 % Monocytes % 2 % Eosinophils % 0 % Basophils % 0 % Neutrophils # 11.8 H (1.3-7.7) k/uL Lymphocytes # 0.7 L (1.0-4.8) k/uL Monocytes # 0.3 (0-1.0) k/uL Eosinophils # 0.0 (0-0.7) k/uL Basophils # 0.0 (0-0.2) k/uL Sodium 135 L (137-145) mmol/L Potassium 4.6 (3.5-5.1) mmol/L Chloride 105 (98-107) mmol/L Carbon Dioxide 21 L (22-30) mmol/L Anion Gap 9 mmol/L BUN 35 H (7-17) mg/dL Creatinine 0.75 (0.52-1.04) mg/dL Est GFR (CKD-EPI)AfAm 82 (>60 ml/min/1.73 sqM) Est GFR (CKD-EPI)NonAf 72 (>60 ml/min/1.73 sqM) Glucose 152 H (74-99) mg/dL Calcium 9.0 (8.4-10.2) mg/dL Urine Color Urine Appearance (Clear) Urine pH (5.0-8.0) Ur Specific [place] (1.001-1.035) Urine Protein (Negative) Urine Glucose (UA) (Negative) Urine Ketones (Negative) Urine Blood (Negative) Urine Nitrite (Negative) Urine Bilirubin (Negative) Urine Urobilinogen (<2.0) mg/dL Ur Leukocyte Esterase (Negative) Urine RBC (0-5) /hpf Urine WBC (0-5) /hpf Urine WBC Clumps (None) /hpf Ur Squamous Epith Cells (0-4) /hpf Urine Mucus (None) /hpf Serum Alcohol <10 mg/dL Coronavirus (PCR) Detected A (Not Detectd) 02/16/21 Range/Units 20:23 WBC (3.8-10.6) k/uL RBC (3.80-5.40) m/uL Hgb (11.4-16.0) gm/dL Hct (34.0-46.0) % MCV (80.0-100.0) fL MCH (25.0-35.0) pg MCHC (31.0-37.0) g/dL RDW (11.5-15.5) % Plt Count (150-450) k/uL MPV Neutrophils % % Lymphocytes % % Monocytes % % Eosinophils % % Basophils % % Neutrophils # (1.3-7.7) k/uL Lymphocytes # (1.0-4.8) k/uL Monocytes # (0-1.0) k/uL Eosinophils # (0-0.7) k/uL Basophils # (0-0.2) k/uL Sodium (137-145) mmol/L Potassium (3.5-5.1) mmol/L Chloride (98-107) mmol/L Carbon Dioxide (22-30) mmol/L Anion Gap mmol/L BUN (7-17) mg/dL Creatinine (0.52-1.04) mg/dL Est GFR (CKD-EPI)AfAm (>60 ml/min/1.73 sqM) Est GFR (CKD-EPI)NonAf (>60 ml/min/1.73 sqM) Glucose (74-99) mg/dL Calcium (8.4-10.2) mg/dL Urine Color Yellow Urine Appearance Clear (Clear) Urine pH 5.5 (5.0-8.0) Ur Specific [place] 1.024 (1.001-1.035) Urine Protein Trace H (Negative) Urine Glucose (UA) Negative (Negative) Urine Ketones Negative (Negative) Urine Blood Negative (Negative) Urine Nitrite Negative (Negative) Urine Bilirubin Negative (Negative) Urine Urobilinogen <2.0 (<2.0) mg/dL Ur Leukocyte Esterase Large H (Negative) Urine RBC 12 H (0-5) /hpf Urine WBC 24 H (0-5) /hpf Urine WBC Clumps Few H (None) /hpf Ur Squamous Epith Cells <1 (0-4) /hpf Urine Mucus Rare H (None) /hpf Serum Alcohol mg/dL Coronavirus (PCR) (Not Detectd) Disposition <Vinny Arce - Last Filed: 02/16/21 21:59> Is patient prescribed a controlled substance at d/c from ED?: No <Teo Saeed - Last Filed: 02/17/21 01:20> Clinical Impression: Altered mental status, Psychosis Disposition: ADMITTED IP TO THIS HOSP Condition: Fair Referrals: Isauro Mar MD [Primary Care Provider] - 1-2 days
[2021-02-16 20:33] LABS: Basophils % (A) 0 %; Eosinophils % (A) 0 %; HCT 37.4 % (34.0-46.0); HGB 12.5 gm/dL (11.4-16.0); Lymphocytes # (A) 0.7 k/uL (1.0-4.8); Lymphocytes % (A) 6 %; MCH 31.3 pg (25.0-35.0); MCHC 33.6 g/dL (31.0-37.0); Mean Platelet Volume 7.9; Monocytes # (A) 0.3 k/uL (0-1.0); Monocytes % (A) 2 %; Neutrophils # (A) 11.8 k/uL (1.3-7.7); Neutrophils % (A) 91 %; Platelet Count 225 k/uL (150-450); RBC 4.01 m/uL (3.80-5.40); RDW 13.7 % (11.5-15.5); WBC 12.9 k/uL (3.8-10.6)
[2021-02-16 20:36] LABS: MCV 93.2 fL (80.0-100.0)
[2021-02-16 20:48] LABS: African American GFR (CKD) 82 (>60 ml/min/1.73 sqM); Alcohol <10 mg/dL; Anion Gap 9 mmol/L; Blood Urea Nitrogen 35 mg/dL (7-17); Carbon Dioxide 21 mmol/L (22-30); Chloride 105 mmol/L (98-107); Glucose 152 mg/dL (74-99); Non-African American GFR(CKD) 72 (>60 ml/min/1.73 sqM); Potassium 4.6 mmol/L (3.5-5.1); Sodium 135 mmol/L (137-145)
--- NOTE | 2021-02-16 21:10 | CT ---
EXAMINATION TYPE: CT brain wo con DATE OF EXAM: 02/16/2021 COMPARISON: 01/13/2021 HISTORY: AMS. No contrast.. Patient is extremely kyphotic and tried to improve images. CT DLP: 1556.7 mGycm Automated exposure control for dose reduction was used. There is cerebral cortical atrophy. There is no mass effect nor midline shift. There is no sign of in tracranial hemorrhage. The calvarium is intact. IMPRESSION: Cerebral atrophy. No acute intracranial abnormality. No adverse change compared to old exam.
[2021-02-16 21:21] LABS: Appearance,Urine Clear (Clear); Bilirubin,Urine Negative (Negative); Blood,Urine Negative (Negative); Color,Urine Yellow; Glucose,Urine (UA) Negative (Negative); Ketones,Urine Negative (Negative); Leukocyte Esterase,Urine Large (Negative); Mucus,Urine Rare /hpf; Nitrite,Urine Negative (Negative); PH, Urine 5.5 (5.0-8.0); Protein,Urine Trace (Negative); RBC,Urine 12 /hpf (0-5); Specific Gravity,Urine 1.024 (1.001-1.035); Squamous Epithelial Cell,Urine <1 /hpf (0-4); Urobilinogen,Urine <2.0 mg/dL (<2.0); WBC,Urine 24 /hpf (0-5)
[2021-02-16] MEDS ORDERED: cefTRIAXone IN SWFI 1,000 MG/10 ML SYRINGE IVP ONE (22:00)
[2021-02-16] MEDS: CEPHALEXIN 500 MG CAP PO SCH (22:42)
[2021-02-17] MEDS ORDERED: MORPHINE SULFATE 4 MG/ML SYRINGE IV PRN (01:16)
[2021-02-17] MEDS ORDERED: ONDANSETRON 4 MG/2 ML VIAL IVP PRN (01:16)
[2021-02-17] MEDS ORDERED: NALOXONE 0.4 MG/ML 1 ML VIAL IV PRN (01:16)
[2021-02-17] MEDS ORDERED: ACETAMINOPHEN TAB 325 MG TAB PO PRN (01:16)
[2021-02-17] MEDS ORDERED: SODIUM CHLORIDE 0.9% 500 ML 500 ML IV STA (01:20)
[2021-02-17] MEDS ORDERED: SODIUM CHLORIDE 0.9% 1,000 ML IV STA (01:20)
--- NOTE | 2021-02-17 01:59 | XR ---
EXAMINATION TYPE: XR chest 1V portable DATE OF EXAM: 02/17/2021 COMPARISON: 01/13/2021 HISTORY: Cough TECHNIQUE: Single view FINDINGS: Heart appears enlarged. There is no heart failure. There is significant thoracic kyphotic d eformity. Costophrenic angles are clear. There is no evidence of a pulmonary mass. Exam is limited by the face over the mediastinum. IMPRESSION: No active cardiopulmonary disease. Cardiomegaly. No change.
[2021-02-17] MEDS: SODIUM CHLORIDE 0.9% 1,000 ML IV SCH ×3 (04:59→21:28)
[2021-02-17] MEDS ORDERED: ALPRAZolam 0.25 MG TAB PO PRN (08:00)
[2021-02-17] MEDS: CEPHALEXIN 500 MG CAP PO SCH ×3 (10:19→21:36)
[2021-02-17] MEDS ORDERED: ZIPRASIDONE 20 MG VIAL IM PRN ×2 (12:02→22:06)
--- NOTE | 2021-02-17 12:08 | P.CN ---
Psychiatric Consult - . Consult date: 02/17/21 Consult:: 02/17/21 10:55 Patient was asked to be seen today by medical team for consult related to altered mental status. Patient is covid positive and has a UTI which being treated with antibiotics. She apparently came from a longterm due to altered mental status, aggressive behavior and hallucinations. Patient was attempted to be seen by health technical writer at the bedside however patient was appearing to be responding to internal stimuli and preoccupied with going to the bathroom and refused to speak to write or answer any questions. Nurse was called in and was helping patient use the restroom and having difficulties. Patient was not able to as sessed today due to altered mentation and uncooperativeness. Continue with treatment of UTI as that is likely affecting mental status and possibly causing delirium. avoid BZD or anticholinergic drugs. Discontinued Seroquel and replace with Prolixin 1 mg twice a day. Continue with melatonin 10 mg at nighttime for insomnia. Added Geodon by mouth and IM prn for agitation/psychosis. Will attempt to re-see patient tomorrow with a full psychiatric consult.
[2021-02-17] MEDS ORDERED: ZIPRASIDONE 20 MG CAP PO STA (12:37)
[2021-02-17] MEDS ORDERED: CEPHALEXIN 500 MG CAP PO SCH ×2 (13:00→21:00)
[2021-02-17] MEDS ORDERED: CALCIUM CARBONATE 500 MG CHEWABLE PO PRN (15:40)
[2021-02-17] MEDS ORDERED: LACTULOSE 20 GM/30 ML CUP PO PRN (15:40)
--- NOTE | 2021-02-17 15:43 | P.HPIM ---
History of Present Illness H&P Date: 02/17/21 Chief Complaint: delirious This is a 89-year-old patient, follows with visiting physicians. Chronic stable medical conditions include GERD, hypertension, hyperlipidemia, irritable bowel syndrome, esophageal spasms, scoliosis. In the ER patient's caregiver Angela moyer the history to the physician that the patient was having some worsening mentation. For last several days patient with having increasing aggressive behavior and having hallucinations that are visual and auditory. Patient is laying in bed. And does questions. Restless and agitated. No fever or trauma was reported.. Patient was here in the hospital a few weeks ago. At that time she was placed on Seroquel. To which she had responded well. She was then seen by psychiatry.. Review of systems: GEN.: Tired EYES: None HEENT: None NECK: None RESPIRATORY: None CARDIOVASCULAR: None GASTROINTESTINAL: None GENITOURINARY: None MUSCULOSKELETAL: None LYMPHATICS: None HEMATOLOGICAL: None PSYCHIATRY: Anxious NEUROLOGICAL: None Past medical history to include: GERD, hyperlipidemia, hypertension, vitamin B12 deficiency, blindness, chronic kyphosis, Social history: Resident of [facility]. No history of smoking or alcohol. On examination: VITAL SIGNS: 97.9, 79, 16, 1 35 x 77, 95% room air GENERAL APPEARANCE: Awake , agitated HEENT: Normal external appearance of nose and ear. Oral cavity normal EYES: Pupils equal. Conjunctiva normal. NECK: JVD not raised. Mass not palpable. RESPIRATORY: Respiratory effort normal. decreased breath sounds MUSCULAR skeletal: Evidence of OA. Kyphosis severe CARDIOVASCULAR: First and second sounds normal. No edema. ABDOMEN: Soft. Liver and spleen not palpable. No tenderness. No mass palpable. PSYCHIATRY: Does answer questions. Somewhat agitated. NEUROLOGICAL: Moving all 4 limbs. Cranial nerves grossly intact INVESTIGATIONS, reviewed in the clinical context: D-dimer 1.46 CRP 2.9 White count 12.9 hemoglobin 12.5 platelets 225 sodium 135 potassium 4.6 BUN 35 creatinine 0.75 UA positive for leukoesterase, WBC Coronavirus [PCR]: Detected Chest x-ray film personally reviewed by me-possible infiltrate Assessment and plan: -Acute COVID-19, but possible mild infiltrate. Admitted vitamin C vitamin D sitting. Patient pulse ox readings are mostly above 95%. Patient does not complain of shortness of breath. Hold off steroi ds. -Acute UTI with cystitis Keflex -Possible acute delirium from UTI, COVID-19 -GERD Pepcid as needed -Hyperlipidemia Zocor 20 mg daily at bedtime -Essential hypertension Amlodipine 5 mg daily, lisinopril 20 mg daily, Toprol-XL 50 mg daily -Vitamin B12 deficiency B12 thousand micrograms by mouth daily at bedtime -Chronic blindness Fall precautions 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 which is being managed by wound care -Psychiatry evaluation Past Medical History Past Medical History: GERD/Reflux, Hyperlipidemia, Hypertension Additional Past Medical History / Comment(s): chronic constipation, irritable bowel syndrome, esophageal spasms, osteoporosis, scoliosis History of Any Multi-Drug Resistant Organisms: None Reported Past Surgical History: Cholecystectomy, Hysterectomy, Orthopedic Surgery Additional Past Surgical History / Comment(s): cysts removed from bilateral breasts, right knee surgery, Past Anesthesia/Blood Transfusion Reactions: No Reported Reaction Past Psychological History: Anxiety, Depression Smoking Status: Never smoker Past Alcohol Use History: None Reported Past Drug Use History: None Reported Medications and Allergies Home Medications Medication Instructions Recorded Confirmed Type Metoprolol Succinate (ER) [Toprol 50 mg PO DAILY@69910/05/13 02/16/21 History XL] Simvastatin [Zocor] 20 mg PO HS@189910/05/13 02/16/21 History Santo/D3/Mag11/Zinc/Material Man/Jarocho/Bor 1 tab PO DAILY@69911/02/20 02/16/21 History [Caltrate 600+D Plus Tablet] Sennosides [Senna] 8.6 mg PO BID@699,189911/02/20 02/16/21 History amLODIPine [Norvasc] 5 mg PO DAILY@69911/02/20 02/16/21 History lisinopriL 20 mg PO DAILY@69911/02/20 02/16/21 History Acetaminophen Tab [Tylenol] 1,000 mg PO BID@0700,189901/13/21 02/16/21 History Cyanocobalamin (Vitamin B-12) 1,000 mcg PO HS@19001/13/21 02/16/21 History [Vitamin B-12] Magnesium Hydroxide [Milk of 1,200 mg PO Q48H 01/13/21 02/16/21 History Magnesia] ALPRAZolam [Xanax] 0.25 mg PO Q6H PRN 02/16/21 02/16/21 History Ascorbic Acid [Vitamin C] 500 mg PO BID@0700,1900 02/16/21 02/16/21 History Cholecalciferol [Vitamin D3 (25 50 mcg PO DAILY@0702/16/21 02/16/21 History Mcg = 1000 Iu)] FLUoxetine HCL [Sarafem] 30 mg PO DAILY@0702/16/21 02/16/21 History Finasteride [Proscar] 5 mg PO DAILY@0702/16/21 02/16/21 History Melatonin 10 mg PO HS 02/16/21 02/16/21 History Nystatin 100,000 Unit/gm Powd 1 applic TOPICAL BID@07,189902/16/21 02/16/21 History [Mycostatin Powder] Nystatin 100,000Unit/gm Cream 1 applic TOPICAL BID@0700,19002/16/21 02/16/21 History [Mycostatin Cream] QUEtiapine [SEROquel] 25 mg PO DAILY@0702/16/21 02/16/21 History QUEtiapine [SEROquel] 50 mg PO HS@1900 02/16/21 02/16/21 History Zinc Sulfate [Orazinc] 220 mg PO DAILY@0702/16/21 02/16/21 History predniSONE See Taper PO DIRECTED@0702/16/21 02/16/21 History Allergies Allergy/AdvReac Type Severity Reaction Status Date / Time ampicillin Allergy Unknown Verified 02/16/21 19:58 azithromycin Allergy Swelling Verified 02/16/21 19:58 of tongue dexamethasone Allergy Unknown Verified 02/16/21 19:58 erythromycin base Allergy Unknown Verified 02/16/21 19:58 [Erythromycin Base] levofloxacin [From Levaquin] Allergy Unknown Verified 02/16/21 19:58 polyethylene glycol Allergy Unknown Verified 02/16/21 19:58 [From Golytely] polyethylene glycol 3350 Allergy Unknown Verified 02/16/21 19:58 [From Golytely] potassium chloride Allergy Unknown Verified 02/16/21 19:58 [From Golytely] sodium [From Golytely] Allergy Unknown Verified 02/16/21 19:58 sodium bicarbonate Allergy Unknown Verified 02/16/21 19:58 [From Golytely] sodium chloride Allergy Unknown Verified 02/16/21 19:58 [From iPointerytely] sodium sulfate Allergy Unknown Verified 02/16/21 19:58 [From Ruby Ribbonly] sodium sulfate anhydrous Allergy Unknown Verified 02/16/21 19:58 [From Ruby Ribbonly] penicillin V AdvReac Diarrhea Verified 02/16/21 19:58 Physical Exam Vitals: Vital Signs Temp Pulse Resp BP Pulse Ox 02/17/21 09:41 78 18 92 L 02/17/21 08:00 99.2 F 95 02/17/21 06:39 86 18 139/81 93 L 02/17/21 05:04 92 18 141/87 90 L 02/17/21 02:26 87 18 154/95 95 02/17/21 00:23 98.2 F 87 16 163/97 96 02/16/21 18:43 97.9 F 79 16 135/77 95 Intake and Output 02/16/21 02/17/21 02/17/21 22:59 06:59 14:59 Other: Weight 58.967 kg Results CBC & Chem 7: 02/16/21 20:23 02/16/21 20:23 Labs: Abnormal Lab Results - Last 24 Hours (Table) 02/16/21 02/16/21 02/16/21 Range/Units 20:23 20:23 20:23 WBC 12.9 H (3.8-10.6) k/uL Neutrophils # 11.8 H (1.3-7.7) k/uL Lymphocytes # 0.7 L (1.0-4.8) k/uL Sodium 135 L (137-145) mmol/L Carbon Dioxide 21 L (22-30) mmol/L BUN 35 H (7-17) mg/dL Glucose 152 H (74-99) mg/dL Urine Protein (Negative) Ur Leukocyte Esterase (Negative) Urine RBC (0-5) /hpf Urine WBC (0-5) /hpf Urine WBC Clumps (None) /hpf Urine Mucus (None) /hpf Coronavirus (PCR) Detected A (Not Detectd) 02/16/21 Range/Units 20:23 WBC (3.8-10.6) k/uL Neutrophils # (1.3-7.7) k/uL Lymphocytes # (1.0-4.8) k/uL Sodium (137-145) mmol/L Carbon Dioxide (22-30) mmol/L BUN (7-17) mg/dL Glucose (74-99) mg/dL Urine Protein Trace H (Negative) Ur Leukocyte Esterase Large H (Negative) Urine RBC 12 H (0-5) /hpf Urine WBC 24 H (0-5) /hpf Urine WBC Clumps Few H (None) /hpf Urine Mucus Rare H (None) /hpf Coronavirus (PCR) (Not Detectd)
[2021-02-17] MEDS ORDERED: QUEtiapine 50 MG TAB PO SCH (19:00)
[2021-02-17] MEDS ORDERED: ATORVASTATIN 10 MG TAB PO SCH (19:00)
[2021-02-17] MEDS ORDERED: MIRTAZAPINE 15 MG TAB PO SCH (21:00)
[2021-02-17] MEDS: MELATONIN 5 MG TABLET PO SCH (21:27)
[2021-02-17] MEDS: ASCORBIC ACID 500 MG TAB PO SCH (21:27)
[2021-02-17] MEDS: ACETAMINOPHEN TAB 500 MG TAB PO SCH (21:27)
[2021-02-17] MEDS: ENOXAPARIN 40 MG/0.4 ML SYRINGE SQ SCH (21:28)
[2021-02-17] MEDS: CYANOCOBALAMIN 500 MCG TAB PO SCH (21:28)
[2021-02-17] MEDS: SENNOSIDES 8.6 MG TAB PO SCH (21:29)
[2021-02-17] MEDS ORDERED: ZIPRASIDONE 20 MG CAP PO PRN (22:00)
[2021-02-17] MEDS: NYSTATIN 100,000 UNIT/GM POWD 15 GM TOPICAL SCH (22:03)
[2021-02-17] MEDS: NYSTATIN 100,000UNIT/GM CREAM 30 GM TUBE TOPICAL SCH (22:03)
[2021-02-18] MEDS: SODIUM CHLORIDE 0.9% 1,000 ML IV SCH ×2 (00:15→10:32)
[2021-02-18] MEDS ORDERED: QUEtiapine 25 MG TAB PO SCH (07:00)
[2021-02-18] MEDS: amLODIPine 5 MG TAB PO SCH (08:16)
[2021-02-18] MEDS: predniSONE 10 MG TAB PO SCH (08:16)
[2021-02-18] MEDS: FLUoxetine HCL 10 MG CAP PO SCH (08:16)
[2021-02-18] MEDS: ZINC SULFATE 220 MG CAP PO SCH (08:16)
[2021-02-18] MEDS: ENOXAPARIN 40 MG/0.4 ML SYRINGE SQ SCH (08:16)
[2021-02-18] MEDS: ASCORBIC ACID 500 MG TAB PO SCH ×2 (08:17→20:44)
[2021-02-18] MEDS: CHOLECALCIFEROL 25 MCG (1000 IU) TABLET PO SCH (08:17)
[2021-02-18] MEDS: ACETAMINOPHEN TAB 500 MG TAB PO SCH (08:17)
[2021-02-18] MEDS: FINASTERIDE 5 MG TAB PO SCH (08:17)
[2021-02-18] MEDS: METOPROLOL SUCCINATE (ER) 50 MG TAB.ER.24H PO SCH (08:17)
[2021-02-18] MEDS: lisinopriL 20 MG TAB PO SCH (08:18)
[2021-02-18] MEDS: SENNOSIDES 8.6 MG TAB PO SCH ×2 (08:18→20:45)
[2021-02-18] MEDS: NON FORMULARY DRUG (Cal/D3/Mag11/Zinc/Cop/Mang/Bor [Caltrate 600+D Plus Tablet] 1 EACH Tab PO SCH (10:05)
[2021-02-18] MEDS: NYSTATIN 100,000UNIT/GM CREAM 30 GM TUBE TOPICAL SCH ×2 (10:32→20:45)
[2021-02-18] MEDS: NYSTATIN 100,000 UNIT/GM POWD 15 GM TOPICAL SCH ×2 (10:32→20:44)
[2021-02-18 11:26] LABS: Basophils # (A) 0.02 X 10*3/uL (0.00-0.10); Basophils % (A) 0.2 %; Eosinophils # (A) 0.01 X 10*3/uL (0.04-0.35); Eosinophils % (A) 0.1 %; HCT 40.7 % (37.2-46.3); HGB 13.1 g/dL (12.0-15.0); Lymphocytes # (A) 0.72 X 10*3/uL (0.90-5.00); Lymphocytes % (A) 8.5 %; MCH 30.8 pg (27.0-32.0); MCHC 32.2 g/dL (32.0-37.0); MCV 95.8 fL (80.0-97.0); Mean Platelet Volume 10.5 fL (9.5-12.2); Monocytes # (A) 0.33 X 10*3/uL (0.20-1.00); Monocytes % (A) 3.9 %; Neutrophils # (A) 7.32 X 10*3/uL (1.80-7.70); Neutrophils % (A) 86.8 %; Platelet Count 225 X 10*3/uL (140-440); RBC 4.25 X 10*6/uL (4.10-5.20); RDW 13.5 % (11.5-14.5); WBC 8.44 X 10*3/uL (4.50-10.00)
[2021-02-18 11:46] LABS: African American GFR (CKD) 94.9 (60.0-200.0); Albumin 3.6 g/dL (3.8-4.9); Albumin/Globulin Ratio 1.44 (1.60-3.17); Anion Gap 14.3 mmol/L (10.00-18.00); BUN/Creat Ratio 21.05 Ratio (12.00-20.00); Blood Urea Nitrogen 12.4 mg/dL (9.0-27.0); Calcium 8.5 mg/dL (8.7-10.3); Carbon Dioxide 23.7 mmol/L (20.0-27.5); Globulin 2.5 g/dL (1.6-3.3); Non-African American GFR(CKD) 81.9 (60.0-200.0); Potassium 3.6 mmol/L (3.5-5.5); Total Bilirubin 0.6 mg/dL (0.30-1.20); Total Protein 6.1 g/dL (6.2-8.2)
[2021-02-18] MEDS: MAGNESIUM HYDROXIDE 2,400 MG/10 ML CUP PO SCH (12:34)
[2021-02-18] MEDS: CEPHALEXIN 500 MG CAP PO SCH ×3 (12:34→20:44)
--- NOTE | 2021-02-18 13:09 | P.CN ---
Psychiatric Consult - . Consult date: 02/18/21 Consult:: 02/18/21 11:54 IDENTIFYING DATA: This patient is a 89 yr old female, , who lives in a [facility]itentiary and has a gaurdian. REASON FOR REFERRAL: Psychiatry was consulted for altered mental status and hallucinations. HISTORY OF PRESENT ILLNESS: Patient presented to the hospital from her [facility] for significant psychiatric concerns. Patient was asked to be seen today by medical team for consult related to altered mental status. Patient is covid positive and has a UTI which being treated with antibiotics. She apparently came from a penitentiary due to altered mental status, aggressive behavior and hallucinations. Patient was attempted to be seen by software writer yesterday at the bedside in the ER however patient was appearing to be responding to internal stimuli and preoccupied with going to the bathroom and refused to speak to write or answer any questions. Nurse was called in and was helping patient use the restroom and having difficulties. Patient was started on prolixin and remeron yesterday and seroquel was disconinuted. Patient was reseen today by software writer at the bedside. Patient states that she is not having any significant behavioral concerns and slept well throughout the night. She states that she did not eat her breakfast this morning. Patient was laying in her bed when software writer approached her and she only responded to some questions however responded appropriately. She believed that she was in a "[facility]" however did know that she was in [place]. She does know her full name. She does not know today's date. She was able to follow commands. She did not display any irritability or impulse control issues. She denied any depression or anxiety today. She claims that she slept "okay". She is fairly concrete. At this time patient denies any suicidal or homical ideations, intent or plan. Patient denies any auditory, visual hallucinations. Patients admits to using no recreational drugs. derek called patients diannaarmidamartina Angela at [phone] however no answer and mailbox full, unable to leave . PAST PSYCHIATRIC HISTORY: Unable to gather most of patient psych history. Patient was previously on Seroquel prior to coming into the hospital. [Patient denies any psychiatric outpatient follow-up.] PAST MEDICAL HISTORY: as per Medical H and P. ALLERGIES: as per EMR. CHEMICAL DEPENDENCY HISTORY: as per HPI. FAMILY PSYCHIATRIC/SUBSTANCE USE HISTORY: unable to gather info SOCIAL HISTORY: Patient has a gaurdian, lives at a penitentiary. unable to gather more social hx info. MENTAL STATUS EXAM: General Appearance: Patient appears to be thin, back/neck hunched over, older than stated age is alert, directable. Patient appears to have [fair] hygiene and grooming wearing hospital gown. Behavior: [Patient is calmly lying in bed without any agitated behavior.] attempts to cooperate Speech: Patient's speech is fluent and nonpressured. Monotone and concrete Mood/Affect: Patient reports their mood is "[fine]", affect is congruent and constricted Suicidality/Homicidality: Patient denies having any suicidal or homicidal ideation intent or plan. Perceptions: Patient denies any visual hallucinations [and denies any auditory hallucinations] Though content/process: poverty of content/speech. concrete. not endorsing any delusions. Memory and concentration: AOX1-2, does not know the accurate place or date. cannot spell "WORLD" backwards Judgment and insight: limited IMPRESSIONS: Dementia unspecified Delirium likely secondary to infection, medications. PLAN: -At this time patient DOES [NOT] meet criteria for inpatient psychiatric admission. [-Delirium precautions recommended with patient including - avoiding use of narcotics and LAND ACQUISITION ANALYST sedatives, limit anticholinergic medications when possible, frequent re-orientation, minimize use of restraints, open window shades during the day and close them at night] -Would recommend the following medication changes/additions: Continue avoiding benzodiazepines and try to limit steroids and anticholinergics and opiates as th is may worsen patient's condition. Will increase Remeron to 30 mg daily at bedtime for insomnia/mood/appetite. Continue with Prolixin 1 mg twice a day for psychosis/hallucinations. prozac 30 mg daily for mood, geodon prn for agitation/psychosis. -continue with Tx of underlying infection. [-finish repair worker to provide patient with outpatient mental health/psychiatry resources for appropriate follow up upon discharge] [-Communicated plan to patient's nurse] -Attempted to call pts karina at number given above however no answer. If she calls back and would like to speak with psych will be available tomorrow to speak. [-Psychiatry will sign off at this time] -Please contact with any questions. 02/18/21 13:09
[2021-02-18] MEDS: DEXTROSE 5%-0.45% NACL 1,000 ML IV SCH (15:52)
[2021-02-18] MEDS: MIRTAZAPINE 15 MG TAB PO SCH (20:43)
[2021-02-18] MEDS: MELATONIN 5 MG TABLET PO SCH (20:43)
[2021-02-18] MEDS: CYANOCOBALAMIN 500 MCG TAB PO SCH (20:44)
--- NOTE | 2021-02-18 22:20 | P.PN ---
Progress Note - Text Progress Note Date: 02/18/21 Chief Complaint: delirious This is a 89-year-old patient, follows with visiting physicians. Chronic stable medical conditions include GERD, hypertension, hyperlipidemia, irritable bowel syndrome, esophageal spasms, scoliosis. In the ER patient's caregiver Angela gave the history to the physician that the patient was having some worsening mentation. For last several days patient with having increasing aggressive behavior and having hallucinations that are visual and auditory. Patient is laying in bed. And does questions. Restless and agitated. No fever or trauma was reported.. Patient was here in the hospital a few weeks ago. At that time she was placed on Seroquel. To which she had responded well. She was then seen by psychiatry.. February 18: Laying in bed. More restful today. Not eating much. Tired. Resolved when answering questions. Review of systems: Patient really didn't answer questions today. Active Medications Amlodipine Besylate (Amlodipine 5 Mg Tab) 5 mg PO DAILY@0700 [facility] Last Admin: 02/18/21 08:16 Dose: 5 mg Documented by: Ascorbic Acid (Ascorbic Acid 500 Mg Tab) 500 mg PO BID@0700,1900 [facility] Last Admin: 02/18/21 20:44 Dose: 500 mg Documented by: Calcium Carbonate/Glycine (Calcium Carbonate 500 Mg Chewable) 1,000 mg PO Q4HR PRN PRN Reason: Dyspepsia Cephalexin (Cephalexin 500 Mg Cap) 500 mg PO TID [facility] Last Admin: 02/18/21 20:44 Dose: 500 mg Documented by: Cholecalciferol (Cholecalciferol 25 Mcg (1000 Iu) Tablet) 50 mcg PO DAILY@0700 [facility] Last Admin: 02/18/21 08:17 Dose: 50 mcg Documented by: Cyanocobalamin (Cyanocobalamin 500 Mcg Tab) 1,000 mcg PO HS@1900 [facility] Last Admin: 02/18/21 20:44 Dose: 1,000 mcg Documented by: Enoxaparin Sodium (Enoxaparin 40 Mg/0.4 Ml Syringe) 40 mg SQ DAILY [facility] Last Admin: 02/18/21 08:16 Dose: 40 mg Documented by: Finasteride (Finasteride 5 Mg Tab) 5 mg PO DAILY@0700 [facility] Last Admin: 02/18/21 08:17 Dose: 5 mg Documented by: Fluoxetine HCl (Fluoxetine Hcl 10 Mg Cap) 30 mg PO DAILY@0700 [facility] Last Admin: 02/18/21 08:16 Dose: 30 mg Documented by: Fluphenazine HCl (Fluphenazine 1 Mg Tab) 1 mg PO BID [facility] Last Admin: 02/18/21 20:44 Dose: 1 mg Documented by: Dextrose/Sodium Chloride (Dextrose 5%-1/2ns Iv Soln) 1,000 mls @ 100 mls/hr IV .Q10H [facility] Last Admin: 02/18/21 15:52 Dose: 100 mls/hr Documented by: Lactulose (Lactulose 20 Gm/30 Ml Cup) 20 gm PO DAILY PRN PRN Reason: Constipation Lisinopril (Lisinopril 20 Mg Tab) 20 mg PO DAILY@0700 [facility] Last Admin: 02/18/21 08:18 Dose: 20 mg Documented by: Magnesium Hydroxide (Magnesium Hydroxide 2,400 Mg/10 Ml Cup) 1,200 mg PO Q48H [facility] Last Admin: 02/18/21 12:34 Dose: 1,200 mg Documented by: Melatonin (Melatonin 5 Mg Tablet) 10 mg PO [facility] Last Admin: 02/18/21 20:43 Dose: 10 mg Documented by: Metoprolol Succinate (Metoprolol Succinate (Er) 50 Mg Tab.Er.24h) 50 mg PO DAILY@0700 [facility] Last Admin: 02/18/21 08:17 Dose: 50 mg Documented by: Mirtazapine (Mirtazapine 15 Mg Tab) 30 mg PO [facility] Last Admin: 02/18/21 20:43 Dose: 30 mg Documented by: Morphine Sulfate (Morphine Sulfate 4 Mg/Ml Syringe) 4 mg IV Q4HR PRN PRN Reason: Severe Pain Last Admin: 02/17/21 06:35 Dose: 4 mg Documented by: Naloxone HCl (Naloxone 0.4 Mg/Ml 1 Ml Vial) 0.2 mg IV Q2M PRN PRN Reason: Opioid Reversal Non-Formulary Medication (Santo/D3/Mag11/Zinc/Motor Equipment Commanding Officer/Jarocho/Bor [Caltrate 600+D Plus Tablet]) 1 tab PO DAILY@0700 [facility] Last Admin: 02/18/21 10:05 Dose: Not Given Documented by: Nystatin (Nystatin 100,000 Unit/Gm Powd 15 Gm) 1 applic TOPICAL BID@0700,1900 [facility]; Protocol Last Admin: 02/18/21 20:44 Dose: 1 applic Documented by: Nystatin (Nystatin 100,000unit/Gm Cream 30 Gm Tube) 1 applic TOPICAL BID@0700,1900 [facility]; Protocol Last Admin: 02/18/21 20:45 Dose: 1 applic Documented by: Ondansetron HCl (Ondansetron 4 Mg/2 Ml Vial) 4 mg IVP Q8HR PRN PRN Reason: Nausea And Vomiting Prednisone (Prednisone 10 Mg Tab) 30 mg PO DAILY@0700 [facility] Stop: 02/21/21 07:01 Last Admin: 02/18/21 08:16 Dose: 30 mg Documented by: Prednisone (Prednisone 10 Mg Tab) 20 mg PO DAILY@0700 [facility] Stop: 02/25/21 07:01 Prednisone (Prednisone 10 Mg Tab) 10 mg PO DAILY@0700 [facility] Stop: 03/01/21 07:01 Senna (Sennosides 8.6 Mg Tab) 8.6 mg PO BID@0700,1900 [facility] Last Admin: 02/18/21 20:45 Dose: 8.6 mg Documented by: Zinc Sulfate (Zinc Sulfate 220 Mg Cap) 220 mg PO DAILY@0700 [facility] Last Admin: 02/18/21 08:16 Dose: 220 mg Documented by: Ziprasidone (Ziprasidone 20 Mg Cap) 10 mg PO BID PRN PRN Reason: Agitation Ziprasidone (Ziprasidone 20 Mg Vial) 10 mg IM BID PRN PRN Reason: Agitation Stop: 02/19/21 22:07 Past medical history to include: GERD, hyperlipidemia, hypertension, vitamin B12 deficiency, blindness, chronic kyphosis, Social history: Resident of [facility]. No history of smoking or alcohol. On examination: VITAL SIGNS: 98, 98, 16, 1 3692, 91% room air GENERAL APPEARANCE: Tired, rather quiet HEENT: Normal external appearance of nose and ear. Oral cavity normal EYES: Pupils equal. Conjunctiva normal. NECK: JVD not raised. Mass not palpable. RESPIRATORY: Respiratory effort normal. decreased breath sounds MUSCULAR skeletal: Evidence of OA. Kyphosis severe CARDIOVASCULAR: First and second sounds normal. No edema. ABDOMEN: Soft. Liver and spleen not palpable. No tenderness. No mass palpable. PSYCHIATRY: Does answer questions. More withdrawn today.. NEUROLOGICAL: Moving all 4 limbs. Cranial nerves grossly intact INVESTIGATIONS, reviewed in the clinical context: February 10: White count 8.4 hemoglobin 13.1 potassium 3.6 creatinine 0.6. AST 316 ALT 384 D-dimer 1.46 CRP 2.9 White count 12.9 hemoglobin 12.5 platelets 225 sodium 135 potassium 4.6 BUN 35 creatinine 0.75 UA positive for leukoesterase, WBC Coronavirus [PCR]: Detected Chest x-ray film personally reviewed by me-possible infiltrate Assessment and plan: -Acute COVID-19, but possible mild infiltrate. vitamin C vitamin D zinc. Patient pulse ox readings are mostly above 95%. Patient does not complain of shortness of breath. Hold off steroids. -Acute UTI with cystitis Keflex -Possible acute delirium from UTI, COVID-19 -Acute hepatitis, new diagnosis cause unknown Check acetaminophen level. DC Tylenol. Acute hepatitis panel. Repeat labs in the morning. Hepatic ultrasound. 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 Prudoxin 1 mg twice a day. Prozac 30 mg by mouth. Geodon when necessary Per psychiatry Remeron increased to 30 mg daily at bedtime. 6roloxince daily. acute hepatitis panel. Tylenol level. Hepatic ultrasound.
[2021-02-19] MEDS: DEXTROSE 5%-0.45% NACL 1,000 ML IV SCH ×3 (00:50→23:40)
[2021-02-19 07:56] LABS: ALT 211 U/L (4-34); African American GFR (CKD) >90 (>60 ml/min/1.73 sqM); Albumin 3.2 g/dL (3.5-5.0); Anion Gap 8 mmol/L; Blood Urea Nitrogen 15 mg/dL (7-17); Calcium 8.6 mg/dL (8.4-10.2); Carbon Dioxide 23 mmol/L (22-30); Chloride 104 mmol/L (98-107); Globulin 3.3 g/dL; Glucose 167 mg/dL (74-99); Non-African American GFR(CKD) 80 (>60 ml/min/1.73 sqM); Sodium 135 mmol/L (137-145); Total Bilirubin 0.9 mg/dL (0.2-1.3); Total Protein 6.5 g/dL (6.3-8.2)
[2021-02-19 08:05] LABS: AST 94 U/L (14-36); Alkaline Phosphatase 203 U/L (38-126); Potassium 3.6 mmol/L (3.5-5.1)
[2021-02-19] MEDS: ENOXAPARIN 40 MG/0.4 ML SYRINGE SQ SCH (09:07)
[2021-02-19] MEDS: ASCORBIC ACID 500 MG TAB PO SCH ×2 (09:07→18:26)
[2021-02-19] MEDS: METOPROLOL SUCCINATE (ER) 50 MG TAB.ER.24H PO SCH (09:07)
[2021-02-19] MEDS: lisinopriL 20 MG TAB PO SCH (09:07)
[2021-02-19] MEDS: ZINC SULFATE 220 MG CAP PO SCH (09:08)
[2021-02-19] MEDS: CEPHALEXIN 500 MG CAP PO SCH ×2 (09:08→18:26)
[2021-02-19] MEDS: CHOLECALCIFEROL 25 MCG (1000 IU) TABLET PO SCH (09:08)
[2021-02-19] MEDS: FLUoxetine HCL 10 MG CAP PO SCH (09:08)
[2021-02-19] MEDS: SENNOSIDES 8.6 MG TAB PO SCH ×2 (09:08→18:27)
[2021-02-19] MEDS: predniSONE 10 MG TAB PO SCH (09:08)
[2021-02-19] MEDS: amLODIPine 5 MG TAB PO SCH (09:08)
[2021-02-19] MEDS: NYSTATIN 100,000 UNIT/GM POWD 15 GM TOPICAL SCH ×2 (09:09→18:26)
[2021-02-19] MEDS: NON FORMULARY DRUG (Cal/D3/Mag11/Zinc/Cop/Mang/Bor [Caltrate 600+D Plus Tablet] 1 EACH Tab PO SCH (09:09)
[2021-02-19] MEDS: FINASTERIDE 5 MG TAB PO SCH (09:09)
[2021-02-19] MEDS: NYSTATIN 100,000UNIT/GM CREAM 30 GM TUBE TOPICAL SCH ×2 (09:09→18:27)
[2021-02-19 10:53] LABS: Hepatitis A Antibody IgM Nonreactive (Nonreactive); Hepatitis B Core IgM Nonreactive (Nonreactive); Hepatitis B Surface Antigen Nonreactive (Nonreactive); Hepatitis C IgG Antibody Nonreactive (Nonreactive)
--- NOTE | 2021-02-19 17:04 | P.PN ---
Progress Note - Text Progress Note Date: 02/19/21 Chief Complaint: delirious This is a 89-year-old patient, follows with visiting physicians. Chronic stable medical conditions include GERD, hypertension, hyperlipidemia, irritable bowel syndrome, esophageal spasms, scoliosis. In the ER patient's caregiver Angela gave the history to the physician that the patient was having some worsening mentation. For last several days patient with having increasing aggressive behavior and having hallucinations that are visual and auditory. Patient is laying in bed. And does questions. Restless and agitated. No fever or trauma was reported.. Patient was here in the hospital a few weeks ago. At that time she was placed on Seroquel. To which she had responded well. She was then seen by psychiatry.. February 18: Laying in bed. More restful today. Not eating much. Tired. Resolved when answering questions. February 19: Laying in bed. Taking her medications. Barely eating. Answering questions. Review of systems: Patient really didn't answer questions today. Active Medications Amlodipine Besylate (Amlodipine 5 Mg Tab) 5 mg PO DAILY@0700 [facility] Last Admin: 02/19/21 09:08 Dose: 5 mg Documented by: Ascorbic Acid (Ascorbic Acid 500 Mg Tab) 500 mg PO BID@0700,1900 [facility] Last Admin: 02/19/21 09:07 Dose: 500 mg Documented by: Calcium Carbonate/Glycine (Calcium Carbonate 500 Mg Chewable) 1,000 mg PO Q4HR PRN PRN Reason: Dyspepsia Cephalexin (Cephalexin 500 Mg Cap) 500 mg PO TID [facility] Last Admin: 02/19/21 09:08 Dose: 500 mg Documented by: Cholecalciferol (Cholecalciferol 25 Mcg (1000 Iu) Tablet) 50 mcg PO DAILY@0700 [facility] Last Admin: 02/19/21 09:08 Dose: 50 mcg Documented by: Cyanocobalamin (Cyanocobalamin 500 Mcg Tab) 1,000 mcg PO HS@1900 [facility] Last Admin: 02/18/21 20:44 Dose: 1,000 mcg Documented by: Enoxaparin Sodium (Enoxaparin 40 Mg/0.4 Ml Syringe) 40 mg SQ DAILY [facility] Last Admin: 02/19/21 09:07 Dose: 40 mg Documented by: Finasteride (Finasteride 5 Mg Tab) 5 mg PO DAILY@0700 [facility] Last Admin: 02/19/21 09:09 Dose: 5 mg Documented by: Fluoxetine HCl (Fluoxetine Hcl 10 Mg Cap) 30 mg PO DAILY@0700 [facility] Last Admin: 02/19/21 09:08 Dose: 30 mg Documented by: Fluphenazine HCl (Fluphenazine 1 Mg Tab) 1 mg PO BID [facility] Last Admin: 02/19/21 09:07 Dose: 1 mg Documented by: Dextrose/Sodium Chloride (Dextrose 5%-1/2ns Iv Soln) 1,000 mls @ 100 mls/hr IV .Q10H [facility] Last Admin: 02/19/21 00:50 Dose: 100 mls/hr Documented by: Lactulose (Lactulose 20 Gm/30 Ml Cup) 20 gm PO DAILY PRN PRN Reason: Constipation Lisinopril (Lisinopril 20 Mg Tab) 20 mg PO DAILY@0700 [facility] Last Admin: 02/19/21 09:07 Dose: 20 mg Documented by: Magnesium Hydroxide (Magnesium Hydroxide 2,400 Mg/10 Ml Cup) 1,200 mg PO Q48H [facility] Last Admin: 02/18/21 12:34 Dose: 1,200 mg Documented by: Melatonin (Melatonin 5 Mg Tablet) 10 mg PO [facility] Last Admin: 02/18/21 20:43 Dose: 10 mg Documented by: Metoprolol Succinate (Metoprolol Succinate (Er) 50 Mg Tab.Er.24h) 50 mg PO DAILY@0700 [facility] Last Admin: 02/19/21 09:07 Dose: 50 mg Documented by: Mirtazapine (Mirtazapine 15 Mg Tab) 30 mg PO [facility] Last Admin: 02/18/21 20:43 Dose: 30 mg Documented by: Morphine Sulfate (Morphine Sulfate 4 Mg/Ml Syringe) 4 mg IV Q4HR PRN PRN Reason: Severe Pain Last Admin: 02/17/21 06:35 Dose: 4 mg Documented by: Naloxone HCl (Naloxone 0.4 Mg/Ml 1 Ml Vial) 0.2 mg IV Q2M PRN PRN Reason: Opioid Reversal Non-Formulary Medication (Santo/D3/Mag11/Zinc/Railroad Yard Worker/Jarocho/Bor [Caltrate 600+D Plus Tablet]) 1 tab PO DAILY@0700 [facility] Last Admin: 02/19/21 09:09 Dose: Not Given Documented by: Nystatin (Nystatin 100,000 Unit/Gm Powd 15 Gm) 1 applic TOPICAL BID@699,1899 [facility]; Protocol Last Admin: 02/19/21 09:09 Dose: 1 applic Documented by: Nystatin (Nystatin 100,000unit/Gm Cream 30 Gm Tube) 1 applic TOPICAL BID@699,1899 [facility]; Protocol Last Admin: 02/19/21 09:09 Dose: 1 applic Documented by: Ondansetron HCl (Ondansetron 4 Mg/2 Ml Vial) 4 mg IVP Q8HR PRN PRN Reason: Nausea And Vomiting Prednisone (Prednisone 10 Mg Tab) 30 mg PO DAILY@699 [facility] Stop: 02/21/21 07:01 Last Admin: 02/19/21 09:08 Dose: 30 mg Documented by: Prednisone (Prednisone 10 Mg Tab) 20 mg PO DAILY@699 [facility] Stop: 02/25/21 07:01 Prednisone (Prednisone 10 Mg Tab) 10 mg PO DAILY@699 [facility] Stop: 03/01/21 07:01 Senna (Sennosides 8.6 Mg Tab) 8.6 mg PO BID@699,1899 [facility] Last Admin: 02/19/21 09:08 Dose: 8.6 mg Documented by: Zinc Sulfate (Zinc Sulfate 220 Mg Cap) 220 mg PO DAILY@699 [facility] Last Admin: 02/19/21 09:08 Dose: 220 mg Documented by: Ziprasidone (Ziprasidone 20 Mg Cap) 10 mg PO BID PRN PRN Reason: Agitation Ziprasidone (Ziprasidone 20 Mg Vial) 10 mg IM BID PRN PRN Reason: Agitation Stop: 02/19/21 22:07 Past medical history to include: GERD, hyperlipidemia, hypertension, vitamin B12 deficiency, blindness, chronic kyphosis, Social history: Resident of [facility]. No history of smoking or alcohol. On examination: VITAL SIGNS: 97.9, 80, 17, 152/82, 93% on room air GENERAL APPEARANCE: Laying in bed, awake HEENT: Normal external appearance of nose and ear. Oral cavity normal EYES: Pupils equal. Conjunctiva normal. NECK: JVD not raised. Mass not palpable. RESPIRATORY: Respiratory effort normal. decreased breath sounds MUSCULAR skeletal: Evidence of OA. Kyphosis severe CARDIOVASCULAR: First and second sounds normal. No edema. ABDOMEN: Soft. Liver and spleen not palpable. No tenderness. No mass palpable. PSYCHIATRY: Answering questions. NEUROLOGICAL: Moving all 4 limbs. Cranial nerves grossly intact INVESTIGATIONS, reviewed in the clinical context: February 19: Potassium 3.6 AST 94 ALT 211 Acute hepatitis panel: Negative acetaminophen less than 10 February 18: White count 8.4 hemoglobin 13.1 potassium 3.6 creatinine 0.6. AST 316 ALT 384 D-dimer 1.46 CRP 2.9 White count 12.9 hemoglobin 12.5 platelets 225 sodium 135 potassium 4.6 BUN 35 creatinine 0.75 UA positive for leukoesterase, WBC Coronavirus [PCR]: Detected Chest x-ray film personally reviewed by me-possible infiltrate Assessment and plan: -Acute COVID-19, mild infiltrate. vitamin C vitamin D zinc. Patient pulse ox readings are mostly above 95%. Patient does not complain of shortness of breath. Hold off steroids. -Acute UTI with cystitis Keflex -Possible acute delirium from UTI, COVID-19: Bed to -Acute hepatitis, new diagnosis cause unknown: Slow improvement Check acetaminophen level. DC Tylenol. Acute hepatitis panel. Repeat labs in the morning. Hepatic ultrasound. 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 Prudoxin 1 mg twice a day. Prozac 30 mg by mouth. Geodon when necessary Discussed with Dr. Maher. Continue with Prolixin . Repeat LFTs. Encourage oral intake.
[2021-02-19] MEDS: CYANOCOBALAMIN 500 MCG TAB PO SCH (18:26)
[2021-02-19] MEDS: MIRTAZAPINE 15 MG TAB PO SCH (21:28)
[2021-02-19] MEDS: MELATONIN 5 MG TABLET PO SCH (21:30)
[2021-02-20 06:15] VITALS: RESP 16
[2021-02-20 06:36] LABS: ALT 143 U/L (4-34); AST 54 U/L (14-36); African American GFR (CKD) 88 (>60 ml/min/1.73 sqM); Albumin 3.2 g/dL (3.5-5.0); Albumin/Globulin Ratio 0.9; Alkaline Phosphatase 163 U/L (38-126); Anion Gap 8 mmol/L; Blood Urea Nitrogen 14 mg/dL (7-17); Calcium 8.2 mg/dL (8.4-10.2); Carbon Dioxide 24 mmol/L (22-30); Chloride 100 mmol/L (98-107); Globulin 3.4 g/dL; Glucose 146 mg/dL (74-99); Non-African American GFR(CKD) 77 (>60 ml/min/1.73 sqM); Sodium 132 mmol/L (137-145); Total Bilirubin 0.9 mg/dL (0.2-1.3); Total Protein 6.6 g/dL (6.3-8.2)
[2021-02-20 06:39] LABS: Potassium 3.4 mmol/L (3.5-5.1)
[2021-02-20] MEDS: MAGNESIUM HYDROXIDE 2,400 MG/10 ML CUP PO SCH (09:00)
[2021-02-20] MEDS: lisinopriL 20 MG TAB PO SCH (09:01)
[2021-02-20] MEDS: CEPHALEXIN 500 MG CAP PO SCH (09:01)
[2021-02-20] MEDS: ENOXAPARIN 40 MG/0.4 ML SYRINGE SQ SCH (09:01)
[2021-02-20] MEDS: predniSONE 10 MG TAB PO SCH (09:01)
[2021-02-20] MEDS: SENNOSIDES 8.6 MG TAB PO SCH (09:02)
[2021-02-20] MEDS: ZINC SULFATE 220 MG CAP PO SCH (09:02)
[2021-02-20] MEDS: FINASTERIDE 5 MG TAB PO SCH (09:02)
[2021-02-20] MEDS: CHOLECALCIFEROL 25 MCG (1000 IU) TABLET PO SCH (09:02)
[2021-02-20] MEDS: ASCORBIC ACID 500 MG TAB PO SCH (09:02)
[2021-02-20] MEDS: amLODIPine 5 MG TAB PO SCH (09:02)
[2021-02-20] MEDS: METOPROLOL SUCCINATE (ER) 50 MG TAB.ER.24H PO SCH (09:02)
[2021-02-20] MEDS: FLUoxetine HCL 10 MG CAP PO SCH (09:02)
[2021-02-20] MEDS: NYSTATIN 100,000UNIT/GM CREAM 30 GM TUBE TOPICAL SCH (09:03)
[2021-02-20] MEDS: NON FORMULARY DRUG (Cal/D3/Mag11/Zinc/Cop/Mang/Bor [Caltrate 600+D Plus Tablet] 1 EACH Tab PO SCH (09:03)
[2021-02-20] MEDS: NYSTATIN 100,000 UNIT/GM POWD 15 GM TOPICAL SCH (09:03)
[2021-02-20] MEDS: DEXTROSE 5%-0.45% NACL 1,000 ML IV SCH (09:04)
--- NOTE | 2021-02-20 12:31 | CDI ---
Documentation Clarification Form Date: 02/20/2021 12:11:21 PM From: Sania Scott RN CCDS Admit Date: 02/19/2021 10:41:00 AM Patient Name: Feli Forrest Visit Number: [id number] Discharge Date: ATTENTION: The Clinical Documentation Specialists (CDI) and [facility] Coding Staff appreciate your assistance in clarifying documentation. Please respond to the clarification below the line at the bottom and electronically sign. The CDI & [facility] Coding staff will review the response and follow-up if needed. Please note: Queries are made part of the Legal Health Record. If you have any questions, please contact the author of this message via ITS. Dr. Yuri Bullard Your patient has the documented symptom of Delirium 02/17, H&P and 02/18, 02/19, Medicine progress note. Additional clarification regarding the etiology/cause of this symptom is requested. History/Risk Factors: 89-year-old female presents to the ED for worsening mentation, increasing aggressive behavior and visual and auditory hallucinations. Medical History: HTN. 02/17, H&P. Clinical Indicators: Labs 02/16: Wbc 12.9, Neutrophils 11.8, D-dimer 1.46, UA leukocyte esterase Large, Wbc 24, Bradford Virus Detected. Brain CT 02/16: Cerebral atrophy. No acute abnormality H&P 02/17: Possible acute delirium from UTI, COVID 19. Psych progress note 02/18: Delirium likely secondary to infection, medications. Treatment: 02/17 to current Vitamin C 500mg PO BID, 02/17 to current Keflex 500mg PO TID, 02/18 Vitamin D3 50mcg PO Daily, 02/17 to current Vitamin B 12 1,000mcg PO at HS, 02/18 to current Zinc 220mg PO Daily. Please clarify the etiology of the symptom of Delirium. [ ] Metabolic Encephalopathy due to UTI, COVID 19 [ ] Other condition (please specify) [ ] Unable to determine (Template Last Revised: April 2020) Acute metabolic encephalopathy and delirium due to UTI/COVID-19, POA MTDD
[2021-02-20 14:10] VITALS: BP 127/77; PULSE 85; TEMP 97.7
--- NOTE | 2021-02-20 22:41 | P.DS ---
Providers Date of admission: 02/19/21 10:41 Expected date of discharge: 02/20/21 Attending physician: Yuri Bullard Consults: 02/17/21 01:16 Consult Physician Routine Consulting Provider: Ebenezer Maher Consult Reason/Comments: ams Do you want consulting provider notified?: Yes Primary care physician: Isauro Mar MD Hospital Course: Chief Complaint: delirious This is a 89-year-old patient, follows with visiting physicians. Chronic stable medical conditions include GERD, hypertension, hyperlipidemia, irritable bowel syndrome, esophageal spasms, scoliosis. In the ER patient's caregiver Angela gave the history to the physician that the patient was having some worsening mentation. For last several days patient with having increasing aggressive behavior and having hallucinations that are visual and auditory. Patient is laying in bed. And does questions. Restless and agitated. No fever or trauma was reported.. Patient was here in the hospital a few weeks ago. At that time she was placed on Seroquel. To which she had responded well. She was then seen by psychiatry.. Admitted with COVID 19 pneumonitis. Pulse ox code. No indication for steroids. Supplemental medications given. Also acute UTI. Given IV ceftriaxone and then Keflex. For a psychosis was seen by psychiatry. Seroquel was discontinued. Started on Proloxin. Patient started responding well. Today: Patient doing much better. Patient is very picky about a 4. Spoke to the patient's daughter over the phone and discussed length. We'll complete a short course of Keflex. Follow-up with [facility] psychiatry as outpatient. Overall prognosis discussed. Patient also had elevated liver enzymes. Coming down nicely. Acute hepatitis panel, acetaminophen level were all normal. Discussion and discharge planning more than 35 minutes Consultation: Psychiatry Past medical history to include: GERD, hyperlipidemia, hypertension, vitamin B12 deficiency, blindness, chronic kyphosis, Social history: Resident of [place]. No history of smoking or alcohol. On examination: VITAL SIGNS: 87.8, 83, 16, 145/78, GENERAL APPEARANCE: Laying in bed, awake HEENT: Normal external appearance of nose and ear. Oral cavity normal EYES: Pupils equal. Conjunctiva normal. NECK: JVD not raised. Mass not palpable. RESPIRATORY: Respiratory effort normal. decreased breath sounds MUSCULAR skeletal: Evidence of OA. Kyphosis severe CARDIOVASCULAR: First and second sounds normal. No edema. ABDOMEN: Soft. Liver and spleen not palpable. No tenderness. No mass palpable. PSYCHIATRY: Answering questions. NEUROLOGICAL: Moving all 4 limbs. Cranial nerves grossly intact INVESTIGATIONS, reviewed in the clinical context: February 20: AST 54 ALT 143 February 19: Potassium 3.6 AST 94 ALT 211 Acute hepatitis panel: Negative acetaminophen less than 10 February 18: White count 8.4 hemoglobin 13.1 potassium 3.6 creatinine 0.6. AST 316 ALT 384 D-dimer 1.46 CRP 2.9 White count 12.9 hemoglobin 12.5 platelets 225 sodium 135 potassium 4.6 BUN 35 creatinine 0.75 UA positive for leukoesterase, WBC Coronavirus [PCR]: Detected Chest x-ray film personally reviewed by me-possible infiltrate Assessment and plan: -Acute COVID-19, mild infiltrate. vitamin C vitamin D zinc. Patient pulse ox readings are mostly above 95%. Patient does not complain of shortness of breath. No steroids -Acute UTI with cystitis Keflex -Possible acute delirium from UTI, COVID-19: Improved -Acute hepatitis, new diagnosis cause unknown: Getting better Acute hepatitis panel normal. Tylenol level normal. 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 Prolooxin 1 mg twice a day. Prozac 30 mg by mouth. Disposition: Droop home Patient Condition at Discharge: Fair Plan - Discharge Summary Discharge Rx Participant: Yes New Discharge Prescriptions: New Mirtazapine [Remeron] 30 mg PO HS #30 tab Cephalexin [Keflex] 500 mg PO TID #6 cap fluPHENAZine [Prolixin] 1 mg PO BID #60 tab Continue Metoprolol Succinate (ER) [Toprol XL] 50 mg PO DAILY@0700 lisinopriL 20 mg PO DAILY@0700 Cyanocobalamin (Vitamin B-12) [Vitamin B-12] 1,000 mcg PO HS@1900 Magnesium Hydroxide [Milk of Magnesia] 1,200 mg PO Q48H Cholecalciferol [Vitamin D3 (25 Mcg = 1000 Iu)] 50 mcg PO DAILY@0700 Melatonin 10 mg PO HS FLUoxetine HCL [Sarafem] 30 mg PO DAILY@0700 Santo/D3/Mag11/Zinc/Production Designer/Jarocho/Bor [Caltrate 600+D Plus Tablet] 1 tab PO DAILY@0700 amLODIPine [Norvasc] 5 mg PO DAILY@0700 Sennosides [Senna] 8.6 mg PO BID@0700,1900 Zinc Sulfate [Orazinc] 220 mg PO DAILY@0700 ALPRAZolam [Xanax] 0.25 mg PO Q6H PRN PRN Reason: Anxiety Ascorbic Acid [Vitamin C] 500 mg PO BID@0700,1900 Nystatin 100,000Unit/gm Cream [Mycostatin Cream] 1 applic TOPICAL BID@0700,1900 Nystatin 100,000 Unit/gm Powd [Mycostatin Powder] 1 applic TOPICAL BID@0700,1900 Finasteride [Proscar] 5 mg PO DAILY@0700 Discontinued Simvastatin [Zocor] 20 mg PO HS@1900 Acetaminophen Tab [Tylenol] 1,000 mg PO BID@0700,1900 QUEtiapine [SEROquel] 25 mg PO DAILY@0700 QUEtiapine [SEROquel] 50 mg PO HS@1900 predniSONE See Taper PO DIRECTED@0700 Discharge Medication List Metoprolol Succinate (ER) [Toprol XL] 50 mg PO DAILY@0700 10/05/13 [History] Santo/D3/Mag11/Zinc/Production Designer/Jarocho/Bor [Caltrate 600+D Plus Tablet] 1 tab PO DAILY@0700 11/02/20 [History] Sennosides [Senna] 8.6 mg PO BID@0700,1900 11/02/20 [History] amLODIPine [Norvasc] 5 mg PO DAILY@0700 11/02/20 [History] lisinopriL 20 mg PO DAILY@0711/02/20 [History] Cyanocobalamin (Vitamin B-12) [Vitamin B-12] 1,000 mcg PO HS@1900 01/13/21 [History] Magnesium Hydroxide [Milk of Magnesia] 1,200 mg PO Q48H 01/13/21 [History] ALPRAZolam [Xanax] 0.25 mg PO Q6H PRN 02/16/21 [History] Ascorbic Acid [Vitamin C] 500 mg PO BID@0700,1900 02/16/21 [History] Cholecalciferol [Vitamin D3 (25 Mcg = 1000 Iu)] 50 mcg PO DAILY@0702/16/21 [History] FLUoxetine HCL [Sarafem] 30 mg PO DAILY@0702/16/21 [History] Finasteride [Proscar] 5 mg PO DAILY@0702/16/21 [History] Melatonin 10 mg PO HS 02/16/21 [History] Nystatin 100,000 Unit/gm Powd [Mycostatin Powder] 1 applic TOPICAL BID@07,189902/16/21 [History] Nystatin 100,000Unit/gm Cream [Mycostatin Cream] 1 applic TOPICAL BID@07,189902/16/21 [History] Zinc Sulfate [Orazinc] 220 mg PO DAILY@0702/16/21 [History] Cephalexin [Keflex] 500 mg PO TID #6 cap 02/20/21 [Rx] Mirtazapine [Remeron] 30 mg PO HS #30 tab 02/20/21 [Rx] fluPHENAZine [Prolixin] 1 mg PO BID #60 tab 02/20/21 [Rx] Follow up Appointment(s)/Referral(s): dr DILIP [Other] - 2 Weeks Isauro Mar MD [Primary Care Provider] - 1-2 days (Patient to call office to arrange appointment) Sidney Xiong [NON-STAFF] - As Needed Patient Instructions/Handouts: Altered Mental Status (GEN) Activity/Diet/Wound Care/Special Instructions: Will need w/c van transport on d/c. #[phone]. Discharge Disposition: HOME WITH HOME HEALTH SERVICES
[2021-02-22] MEDS ORDERED: predniSONE 10 MG TAB PO SCH (07:00)
[2021-02-26] MEDS ORDERED: predniSONE 10 MG TAB PO SCH (07:00)
== END 2021-02-20 14:51 | disposition home health service (06) | DRG 177 ==
LOC: EC 18:41 → 4SSUR 02-17 01:16 → OBSVTOIN 02-19 10:41
PROVIDERS: ADMIT Hospitalist; ATTEND Hospitalist
DX: U07.1 COVID-19 (principal); J12.82 Pneumonia due to coronavirus disease 2019; G93.41 Metabolic encephalopathy; B17.9 Acute viral hepatitis, unspecified; F05 Delirium due to known physiological condition; E53.8 Deficiency of other specified B group vitamins; E78.5 Hyperlipidemia, unspecified; F29 Unspecified psychosis not due to a substance or known physiological condition; F32.A Depression, unspecified; F41.9 Anxiety disorder, unspecified; H54.7 Unspecified visual loss; I10 Essential (primary) hypertension; K21.9 Gastro-esophageal reflux disease without esophagitis; K22.4 Dyskinesia of esophagus; K58.9 Irritable bowel syndrome, unspecified; M41.9 Scoliosis, unspecified; M81.0 Age-related osteoporosis without current pathological fracture; N30.90 Cystitis, unspecified without hematuria; Z79.899 Other long term (current) drug therapy; Z90.710 Acquired absence of both cervix and uterus; Z88.0 Allergy status to penicillin; Z88.1 Allergy status to other antibiotic agents; Z88.8 Allergy status to other drugs, medicaments and biological substances
CPT/HCPCS: 36415; 70450; 71045; 80048; 80053; 80074; 80143; 80320; 81001; 85025; 85379; 86140; 87635; 96374; 99285